=== PATIENT | female | born 1960 | race Caucasian/White ===

== ENCOUNTER 2020-05-24 07:36 | Outpatient (REF) | payer OTHER, SELFPAY ==
[2020-05-24 08:27] LABS: COVID-19 Test Negative (Negative)
== END 2020-05-24 07:37 | disposition home or self-care (01) ==
LOC: HO.LAB 07:36
PROVIDERS: Visit Provider Internal Medicine
DX: Z20.828 Contact with and (suspected) exposure to other viral communicable diseases (principal)
CPT/HCPCS: 87635

== ENCOUNTER 2020-05-28 08:37 | Outpatient (REF) | payer OTHER, SELFPAY ==
[2020-05-28 09:25] LABS: COVID-19 Test Negative (Negative)
== END 2020-05-28 08:38 | disposition home or self-care (01) ==
LOC: HO.LAB 08:37
PROVIDERS: Visit Provider Internal Medicine
DX: Z20.828 Contact with and (suspected) exposure to other viral communicable diseases (principal)
CPT/HCPCS: 87635

== ENCOUNTER 2020-06-11 08:44 | Outpatient (REF) | payer OTHER, SELFPAY ==
[2020-06-11 08:59] LABS: COVID-19 Test Positive (Negative)
== END 2020-06-11 08:45 | disposition home or self-care (01) ==
LOC: HO.LAB 08:44
PROVIDERS: Visit Provider Internal Medicine
DX: Z20.828 Contact with and (suspected) exposure to other viral communicable diseases (principal)
CPT/HCPCS: 87635; C9803

== ENCOUNTER 2020-09-25 08:49 | Emergency (ER) | payer OTHER, SELFPAY ==
[2020-09-25 08:53] VITALS: BP 179/99; PULSE 84; RESP 16; O2SAT 98; BMI 25.8
--- NOTE | 2020-09-25 08:56 | ED.HEATRA ---
HPI - Head Injury General Chief complaint: Wound/Laceration Stated complaint: head wound - work related Time Seen by Provider: 09/25/20 08:55 Source: patient Mode of arrival: other (was at work) Limitations: no limitations History of Present Illness HPI Narrative: 59 yo female struck head on counter at work - no LOC, no AC therapy Complaint: head injury Onset (ago): minute(s) (just prior to arrival occurred her in ED) Mechanism of Injury: work related injury (struck head on counter) Place: work Loss of Consciousness: no Location of injury: parietal Severity: mild Radiation: none Other Injuries: none Associated symptoms: denies other symptoms Related Data Allergies Allergy/AdvReac Type Severity Reaction Status Date / Time oxycodone Allergy Unknown itching Verified 04/08/17 00:00 No Known Allergies Allergy Unverified 04/19/20 16:58 Review of Systems Review of Systems: Constitutional : No Fever, No Chills, Cardiovascular : No Chest Pain, No SOB Respiratory : No Dyspnea Gastrointestinal : No abdominal pain Musculoskeletal : No Joint Swelling Skin : No rash, positive skin laceration Neuro : No Weakness, No Numbness no headache PMFSH Past Medical History Attestation statement: The following information was validated with the patient. Medical History History of breast cancer Surgical History H/O: hysterectomy Social History Social History (Updated 09/25/20 @ 08:59 by Radha Thomas DO) Smoking Status: Never smoker Physical Exam Vital Signs: Appearance: Alert. Oriented X3. No acute distress. Eyes: Pupils equal, round and reactive to light. ENT: Pharynx normal. Scalp linear superficial 1.5cm laceration bleeding controlled Neck: Normal inspection. Neck supple. CVS: Normal heart rate and rhythm. Pulses normal. Respiratory: No respiratory distress.. Abdomen: Soft and no trauma Skin: Skin warm and dry. Normal skin color. Normal skin turgor. Extremities: no trauma Neuro: Oriented X 3. No motor deficit. No sensory deficit. Procedures Laceration Laceration 1: Site: scalp Size (cm): 1.5 Description: linear Depth: simple, single layer Pre-repair: irrigated extensively Skin layer closed with: other (1 staple) MDM - Head Injury MDM Narrative Medical decision making narrative: 59 yo female struck head on cabinet - no LOC, no AC therapy small 1.5cm laceration will clean and staple, GCS 15 no need for ICH Discharge Plan Discharge Clinical Impression: Laceration of head Qualifiers: Encounter type: initial encounter Location of open wound of head: scalp Foreign body presence: without foreign body Qualified Code(s): S01.01XA - Laceration without foreign body of scalp, initial encounter Patient Disposition: Home, Self-Care Instructions: Head Laceration (ED) Additional Instructions: return to ED for any worsening symptoms or concerns neal to come out in 7 days
== END 2020-09-25 09:15 | disposition home or self-care (01) ==
PROVIDERS: Emergency Provider Emergency Medicine; PCP Nurse Practitioner Family
DX: S01.01XA Laceration without foreign body of scalp, initial encounter (principal); W22.09XA Striking against other stationary object, initial encounter; Y93.9 Activity, unspecified; Y92.9 Unspecified place or not applicable; Y99.0 Civilian activity done for income or pay
CPT/HCPCS: 12001; 99283; 99284

== ENCOUNTER 2020-11-08 08:46 | Outpatient (REF) | payer OTHER, SELFPAY ==
--- NOTE | ~2020-11-08 | XR_ITS ---
EXAMINATION: XR FOOT, LEFT CLINICAL INFORMATION: Fall with pain COMPARISON: None TECHNIQUE: 3 views of the left foot FINDINGS: There is soft tissue swelling seen about the third distal phalanx. There is osteopenia present and though no acute fracture is identified a nondisplaced tuft fracture cannot be excluded. No dislocation evident. Joint spaces are maintained. Achilles and plantar calcaneus spurs present. No erosive changes identified. XR/XR foot LT min 3V IMPRESSION: Calcaneal spurs. No definite acute fracture or dislocation of the left foot identified. Due to osteopenia a nondisplaced distal tuft fracture of the third toe is not excluded.
== END 2020-11-08 08:47 | disposition home or self-care (01) ==
LOC: HO.XRAY 08:46
PROVIDERS: PCP Nurse Practitioner Family; Visit Provider Physician Assistant Medical
DX: M79.672 Pain in left foot (principal); M79.89 Other specified soft tissue disorders
CPT/HCPCS: 73630

== ENCOUNTER 2021-03-12 06:46 | Outpatient (REF) | payer OTHER, SELFPAY ==
[2021-03-12 07:39] LABS: Influenza A PCR NEGATIVE (Negative); Influenza B PCR NEGATIVE (Negative); Resp Syncy Virus RNA Qual PCR NEGATIVE (Negative); SARS COV2 PCR INHOUSE NEGATIVE (Negative)
== END 2021-03-12 06:47 | disposition home or self-care (01) ==
LOC: HO.LAB 06:46
PROVIDERS: Visit Provider Internal Medicine
DX: Z20.822 Contact with and (suspected) exposure to COVID-19 (principal)
CPT/HCPCS: 0241U; 36415

== ENCOUNTER 2021-03-23 13:12 | Outpatient (REF) | payer OTHER, SELFPAY ==
[2021-03-23 15:13] LABS: Influenza A PCR NEGATIVE (Negative); Influenza B PCR NEGATIVE (Negative); Resp Syncy Virus RNA Qual PCR NEGATIVE (Negative); SARS COV2 PCR INHOUSE NEGATIVE (Negative)
== END 2021-03-23 13:13 | disposition home or self-care (01) ==
LOC: HO.ED 13:12
PROVIDERS: PCP Nurse Practitioner Family; Visit Provider Internal Medicine
DX: Z20.822 Contact with and (suspected) exposure to COVID-19 (principal)
CPT/HCPCS: 0241U; 36415

== ENCOUNTER 2021-07-26 06:29 | Outpatient (REF) | payer OTHER, SELFPAY ==
[2021-07-26 07:37] LABS: COVID-19 Test Negative (Negative)
== END 2021-07-26 06:30 | disposition home or self-care (01) ==
LOC: HO.LAB 06:29
PROVIDERS: Visit Provider Internal Medicine
DX: Z20.822 Contact with and (suspected) exposure to COVID-19 (principal)
CPT/HCPCS: 36415; 87635

== ENCOUNTER 2021-08-05 05:32 | Outpatient (REF) | payer OTHER, SELFPAY ==
[2021-08-05 05:53] LABS: IDNOW Serial# 9DD0AD1C
[2021-08-05 05:54] LABS: COVID-19 Test Positive (Negative)
== END 2021-08-05 05:33 | disposition home or self-care (01) ==
LOC: HO.LAB 05:32
PROVIDERS: PCP Nurse Practitioner Family; Visit Provider Internal Medicine
DX: Z20.822 Contact with and (suspected) exposure to COVID-19 (principal)
CPT/HCPCS: 36415; 87635

== ENCOUNTER 2022-04-10 08:03 | Outpatient (REF) | payer OTHER, SELFPAY ==
[2022-04-10 08:45] LABS: COVID-19 Test Negative (Negative); IDNOW Serial# 16C4AD1C
== END 2022-04-10 08:04 | disposition home or self-care (01) ==
LOC: HO.LAB 08:03
PROVIDERS: Absent Provider Internal Medicine; PCP Nurse Practitioner Family; Visit Provider Internal Medicine
DX: Z20.822 Contact with and (suspected) exposure to COVID-19 (principal)
CPT/HCPCS: 87635

== ENCOUNTER 2025-04-03 22:03 | Inpatient (IN) | payer BC, SELFPAY ==
--- OUTSIDE RECORDS SUMMARY | 2011-02-06 | XMS_ITS | Encounter Summary ---
Author Organization Blas Yang [facility] Address [address] [place] [address] Phone Care Team Providers Care Field Traffic Investigator Name Role Phone Unavailable Primary Care Provider Unavailabl e Encounter Details Date Type Department Care Team (Late st Contact Info) Description 02/06/2011 Hospital Encounter [facility],Outside Imaging [address] [place], [place] [id number] Unknown, Unknown, Social History Tobacco Use Types Packs/Day Years Used Date Smoking Tobacco: Never Smokeless Tobacco: Never Alcohol Use Standard Drinks/Week Comments Yes 0 (1 standard drink = 0.6 oz pur e alcohol) occasional 2 per month Child or Family Care Answer Date Record ed Do you have problems with on e of the following making it difficult for you to work, study, or receive health care? No 03/31/2023 Education Answer Date Recorded Are you interested in help w ith more adult education (for example, completing high school, GED, job training, learning the Cook Islander language, technical skills, or developing parenting skills)? No 03/31/2023 Are you concerned about learning? Not on file 03/31/2023 No 03/31/2023 Yes 03/31/2023 Food Answer Date Recorded Within the past 6 months we worried whether our food would run out before we got money to buy more. Never True 03/31/2023 Within the past 6 months the food we bought just didn't last and we didn't have enough money to get more. Never True Residential Stability Answer Date Recor ded What is your housing situation today? I have prashant sing 03/31/2023 How many times have you move d in the past 12 months? Zero (I did not move) 03/31/2023 Paying for Meds Answer Date Recorded Do you have trouble paying for medicines? No 03/31/2023 Paying Utility Bills Answer Date Record ed Do you have trouble paying your heating or elect ricity bill? No 03/31/2023 Transportation Answer Date Recorded Has the lack of transportati on kept you from medical appointments or from getting medications? No 03/31/2023 Unemployment Answer Date Recorded Are you currently unemployed or working on a part-time or temporary basis, and looking for work? No 02/22/2021 Digital Access Answer Date Recorded No 03/31/2023 Yes 03/31/2023 Do you have reliable internet access at home? Ye s 03/31/2023 Do you have a device (e.g., phone, tablet, computer) with a working camera? Yes 03/31/2023 Intimate Partner Violence Answer Date R ecorded Denied Basic Needs Not on file 03/31/2023 In the past 12 months have y ou been in a relationship with a person who hurts, threatens, or tries to control you? No 03/31/2023 Worried food would run out Not on file 03/31 In the past 12 months have y ou been in a relationship with a person who hurts, threatens, or tries to control you? No 03/31/2023 Comments No Sex and Gender Information Value Date Recorded Sex Assigned at Not on file Legal Sex Female 9:50 PM EDT Gender Identity Not on file Sexual Orientation Not on file documented as of this encounter Functional Status documented as of this encounter Plan of Treatment Not on file documented as of this encounter Procedures Procedure Name Priority Date/Time Associated Diagnosis Comments BI MAMMOGRAM OUTSIDE (NO INTERPRETATION) Routine 02/06/2011 12:00 AM EDT documented in this encounter Results * Mammogram Outside (No Interpretation) (02/06/2011 12:00 AM EDT) Narrative Record, 09/13/2024 3:02 PM EST This study is for PACS storage only and not for interpretation. Procedure Note Record, 09/13/2024 This study is for PACS storage only and not for interpretation. us Unknown Unknown MD IMG OUTSIDE IMAGING W/OUT INT ERPRETATION Final Result documented in this encounter Visit Diagnoses Not on filedocumented in this encounter Additional Source Comments The information contained in this document represents components of the legal health record. It is not the complete legal health record.[facility]
--- OUTSIDE RECORDS SUMMARY | 2011-07-22 01:00 | XMS_ITS | Encounter Summary ---
Author Organization Blas Yang [facility] Address [address] [place] [address] Phone Care Team Providers Care Simplex Operator Name Role Phone Unavailable Primary Care Provider Unavailabl e Encounter Details Date Type Department Care Team (Late st Contact Info) Description 07/22/2011 Hospital Encounter [facility],Outside Imaging [address] [place], [place] [phone] Unknown, Unknown, Social History Tobacco Use Types [...] high school, GED, job training, learning the Macanese language, technical skills, or developing parenting skills)? [...] It is not the complete legal health record.[facility]
--- NOTE | ~2025-04-03 | CT_ITS ---
CLINICAL HISTORY: abd pain, fever CT abdomen and pelvis with contrast Comparison: None provided Findings: Mild asymmetry of the imaged implants nonspecific as partially imaged in the [id number]. Age indeterminate ruptures considered on the right. Mild bibasilar atelectasis and/or pneumonitis with superimposed scarring. Multiple cystic lesions of the liver are nonspecific by CT with left lobe-nonenlarged lesion measuring 2.7 cm selectively. Mild periportal edema is nonspecific. Cholelithiasis considered in the neck of the gallbladder by CT. Mild adrenal hyperplasia, left worse than right. Spleen is nonenlarged. Pancreas partly obscured and otherwise unremarkable for CT with mild artifacts. No hydronephrosis. Small cystic structures of the kidneys are too small to characterize by imaging. No small bowel obstruction. Severe stool burden noted, including in the cecum. The appendix is dilated measuring 9 mm diameter. Wall enhancement and adjacent acute inflammatory stranding are concerning for appendicitis. Additional mild free fluid in the abdomen and pelvis nonspecific and may be reactive. No free intraperitoneal air to support or defined perforation. No definite drainable abscess by CT. Mild-moderate wall thickening of the urinary bladder is nonspecific and may reflect cystitis. Mild osseous pelvis deformities appear old/chronic. Mild osteoarthritis of both hips. Degenerative changes also include imaged spine with multifocal degenerative disc changes and multifocal facet arthropathy. Mild height loss of the L2 appears old/chronic and accentuated by upper endplate Schmorl's nodes. Mild retrolisthesis at L2-L3. IMPRESSION: 1. Appendicitis 2. Nonspecific liver lesions. Differential considerations include cysts and hemangiomas in the absence of malignancy. Recommend outpatient liver mass imaging for additional characterization, if not already achieved. This document has been electronically signed by: Cole Manning MD on 04/04/2025 01:01:39
[2025-04-03 22:09] VITALS: BP 196/96; PULSE 100; PULSE 98; RESP 18; TEMP 37.4; O2SAT 95; O2SAT 96; BMI 25.5
[2025-04-03 22:13] VITALS: BP 164/98; PULSE 98; RESP 18; TEMP 37.4; O2SAT 95
[2025-04-03 22:30] VITALS: PULSE 109; TEMP 38.3
[2025-04-03 22:31] LABS: MANUAL DIFF FLAG NO
[2025-04-03 22:34] LABS: Hematocrit 35.2 % (37.0-47.0); Hemoglobin 12.7 g/dl (12.0-16.0); Imm Gran Abs Auto 0.04 X10*3/uL (0.00-0.03); Imm Gran Pct Auto 0.3 % (0.0-0.4); Lymphocytes Absolute Auto 1.7 X10*3/uL (1.2-4.9); Mean Corpuscular HGB Conc 36.1 g/dl (31.0-35.0); Mean Corpuscular Hemoglobin 30.1 pg (27.0-33.0); Mean Corpuscular Volume 83.4 fL (80.0-98.0); NRBC Abs Auto 0.000 X10*3/uL (0.0-0.012); NRBC Pct Auto 0.0 /100WBC (0.0-0.2); Platelet Count 227 X10*3/uL (160-400); Red Blood Count 4.22 X10*6/uL (4.20-5.50); White Blood Count 11.9 X10*3/uL (4.8-10.8)
--- OUTSIDE RECORDS SUMMARY | 2025-04-03 22:45 | XMS_ITS | Encounter Summary ---
Author Organization [facility] Address [address] [place] [address] Phone Care Team Providers Care Behavioral Health Rn Name Role Phone Mak Pham MD Unavailable [phone] Galicia Primary Care Provider [phone] Encounter Details Date Type Department Care Team (Late st Contact Info) Description 11/15/2024 Transcribe Orders Virtual Department [address] [place] [address] Bre Galicia PA [address] [place] [address] [phone] [email or web address] Social History Tobacco Use Types Packs/Day Years [...] high school, GED, job training, learning the Portuguese language, technical skills, or developing parenting skills)? [...] your housing situation today? I have prashant mayers 03/31/2023 How many times have you move [...] on file documented as of this encounter Plan of Treatment Not on file documented as of this encounter Visit Diagnoses Not on filedocumented in this encounter Additional Health Concerns Assessment Noted Time PHQ-2 Depression Total Score: 0 03/31/20 23 12:53 PM EDT documented as of this encounter Care Teams Behavioral Health Rn Relationship Specialty Start Date End Date Bre Galicia PA [address] [place] [address] [email or web address] PCP - General Physician Convolute Tube Winder 2/11/25 Mak Pham MD [address] [place], [place] [id number] [email or web address] Insurance Assigned Provider 02/06/24 documented as of this encounter Additional Source Comments The information contained in this document represents components of the legal health record. It is not the complete legal health record.[facility]
--- OUTSIDE RECORDS SUMMARY | 2025-04-03 22:46 | XMS_ITS | Patient Health Record ---
Author [facility] Address [address] [place] [address] Care Team Providers Care Program Services Assistant Name Role Phone Shelby Ervin NP Primary Care Provider Nicolas Claudio Unavailable [phone] Allergies Allergen (clinical drug ingredient) Drug/Non Drug Allergy documented on EMR Reaction Allergy Type Onset Date Status acetaminophen / oxycodone Percocet Itchy Drug Allergy Active Reason For Referral No Information Medications Medication SIG (Take, Route, Fr equency, Duration) Notes Start Date End Date Status Feldene 20 MG 1 capsule with food Orally Once a day; Duration: 14 days 07/12/2021 Ac tive Eye Vitamins - as directed Orally Active Multivitamin Active Vitamin D Active Walking Boot/Pneumatic As directed Wear Daily; Duration: Until further notice Active Immunizations Vaccine Route Administration Date Status Comme nts COVID-19 Moderna Vaccine Unknown 08/06/2020 Administere d COVID-19 Moderna Vaccine Unknown 09/03/2020 Administere d 1# 08/06/2020 Social History Tobacco Use: Social History Observation Description Date Details (start date - stop date) Never Smoker NA - NA Tobacco Use/Smoking Question Answer Notes Are you a: nonsmoker Additional Findings: Tobacco Non-User Current no n-smoker Alcohol Screen Question Answer Notes Did you have a drink contain ing alcohol in the past year? Yes How often did you have a dri nk containing alcohol in the past year? Monthly or less (1 point) Points 1 Interpretation Negative Tobacco use other than smoking: Question Answer Notes Are you an other tobacco user? No Problems Problem Type SNOMED Code ICD Code Onset Dates Problem Status W/U Status Risk Notes Problem Contracture of joint of left foot (disorder) (907680311325744) Contracture , left foot (M24.575) Active confirmed Problem Acquired hammer toe of left foot (2202800164188923 ) Hammer toe of left foot (M20.42) Active confirmed Plan Of Treatment Pending Test Test Name Order Date X ray : Foot, left 3V 11/30/2020 X ray : Foot, left 3V 12/26/2020 Insurance Providers Payer Name Payer Address Payer Phone Subscriber Number Group Number Insured Name Patient Relationship to Insured Coverage Start Date Coverage End Date Blue Benefits [address] [address] [place] [address] [id number] Maribel Underwood Self - patient is the insured Medical (General) History Medical History History ICD Code Breast Cancer Chicken pox Transfusions Surgical History Surgery Date(Month/Year) Breast Lumpectomy 07/1998 breast reconstruction 08/2008 hysterectomy 11/2008
--- OUTSIDE RECORDS SUMMARY | 2025-04-03 22:46 | XMS_ITS | Clinical Summary ---
Author Organization [facility] Address [address] [place] [address] Phone Care Team Providers Care Egg Tester Name Role Phone Mak Pham MD Unavailable [phone] Bre Galicia Primary Care Provider [phone] Allergies No known active allergies Medications acetaminophen (TYLENOL) 325 mg tablet Take 1 tablet by mouth every 6 (six) hours as needed. Active cholecalciferol (VITAMIN D3) 2,000 unit tablet Take 2,000 Units by mouth daily. Active vitamin A,C,E-zinc-salinas er (OCUVITE PRESERVE) 7,160 unit- 113 mg-100 unit Tab Take 1 tablet by mouth daily. Active ascorbic acid, vitamin C, (VITAMIN C) 500 MG tablet Take 500 mg by mouth daily. Active microfibrillar collagen (INSTAT) powder Apply topically as needed. 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 Immunizations Immunization Administration Dates Next Due COVID-19 (Pre-05/25) Moderna Vaccine, mRNA, PF 09/03/2020,08/06/2020 Influenza Quadrivalent Preservative Free IM 05/03,08/25/2019,05/19/2018 Influenza Recombinant Tyrone valent Preservative Free IM 05/07/2020 Tdap 05/04/2014 Family History Medical History Relation Comments No Known Problems Daughter Cancer Father Lung cancer Father No Known Problems Sister 1 No Known Problems Sister 2 No Known Problems Son 1 No Known Problems Son 2 Relation Status Comments Daughter Alive Father Mother Alive Sister 1 Alive Sister 2 Alive Son 1 Alive Son 2 Alive Social History Tobacco Use Types Packs/Day Years Used Date Smoking Tobacco: Never Smokeless Tobacco: Never Tobacco Cessation:Counseling Given: Not Answered Alcohol Use Standard Drinks/Week Comments Yes 0 [...] high school, GED, job training, learning the Belizean language, technical skills, or developing parenting skills)? [...] on file Sexual Orientation Not on file Last Filed Vital Signs Vital Sign Reading Time Taken Comments Blood Pressure 132/84 03/31/2023 1:26 PM EDT Pulse 94 03/31/2023 1:26 PM EDT Temperature 37.1 C (98.7 F) 03/31/2023 1:26 PM EDT Respiratory Rate 16 08/25/2019 1:23 PM EST Oxygen Saturation 97% 03/31/2023 1:26 PM EDT Inhaled Oxygen Concentration - - Weight 66.2 kg (146 lb) 03/31/2023 1:26 PM EDT Height 156 cm (5' 1.42 ) 03/31/2023 1:26 PM EDT Body Mass Index 27.21 03/31/2023 1:26 PM EDT Plan of Treatment Health Maintenance Due Date Last Done Comments COLOGUARD 12/07/2003 COLONOSCOPY 12/07/2003 COLORECTAL CANCER SCREENING 12/07/2003 FIT TEST 12/07/2003 FOBT 12/07/2003 SIGMOIDOSCOPY 12/07/2003 VIRTUAL COLONOSCOPY 12/07/2003 PNEUMOCOCCAL VACCINES (50+ years) (1 of 1 - PCV) 2008 ZOSTER VACCINES (1 of 2) 2008 OSTEOPOROSIS SCREENING INITIAL (ONE-TIME) 12/07/2023 DEPRESSION SCREENING 03/31/2024 03/31/2023 Adult Td,Tdap Booster 05/04/2024 05/04/2014 INFLUENZA VACCINE (#1) 2025 , 05/07/2020, 08/25/2019, Additional history exists COVID-19 VACCINE ( - 2024- season) 2025 08/30/2021, 09/03/2020, 08/06/2020 SCREENING FOR DIABETES 03/31/2026 03/31/2023 MAMMOGRAM 09/13/2026 09/13/2024, 11/01, 11/16/2017, Additional history exists LIPID PANEL 03/31/2028 03/31/2023, 08/03, 08/15/2017, Additional history exists RSV VACCINE (1 - 1-dose 75+ series) 2033 HEPATITIS C SCREENING Completed 08/25/2019 SMOKING STATUS SCREENING (Once After 26 Yrs) Completed 09/13/2024 HEPATITIS A VACCINES Aged Out No long er eligible based on patient's age to complete this topic HIB VACCINES Aged Out No longer eligi ble based on patient's age to complete this topic MENINGOCOCCAL VACCINES (ACWY) Aged Out No longer eligible based on patient's age to complete this topic MENINGOCOCCAL VACCINES (B) Aged Out N o longer eligible based on patient's age to complete this topic Medical Devices Not on file Procedures Procedure Name Priority Date/Time Associated Diagnosis Comments BI MAMMOGRAM SCREENING WITH TOMOSYNTHESIS WITH CAD (BILATERAL) Routine 09/13/2024 11:52 AM EST Encounter for screening mammogram for malignant neoplasm of breast LIPID PANEL Routine 03/31/2023 2:19 PM EDT Routine general medical examination at a health care facility HEPATITIS C ANTIBODY, QUALITATIVE Routine 08/25/2019 2:54 PM EST Routine general medical examination at a health care facility from Last 3 Months or Most Recently Relevant to Health Maintenance Results * BI MAMMOGRAM SCREENING WITH TOMOSYNTHESIS WITH CAD (BILATERAL) (09/13/2024 11:52 AM EST) Anatomical Region Laterality Modality Breast Left, Breast Right, Breast Bilateral Bila teral Mammography 09/14/2024 6:45 AM EST Impressions 09/14/2024 6:48 AM EST No mammographic evidence of malignancy in either breast. Annual screening mammography is recommended. BI-RADS 2 BENIGN The patient will be notified of the results and recommendations. Narrative 09/14/2024 6:48 AM EST BI MAMMOGRAM SCREENING WITH TOMOSYNTHESIS WITH CAD (BILATERAL) Additional patient information: Screening. History of left breast cancer status post breast conserving therapy (1998). COMPARISON: Comparison is made with relevant prior imaging. Breast composition: There are scattered areas of fibroglandular density. FINDINGS: Post-treatment changes are present in the left breast. There is a biopsy marker clip in the right breast at 6:00 position. There are intact appearing bilateral retropectoral silicone implants present. No abnormal masses, suspicious calcifications, or other significant findings are identified mammographically in either breast. There has been no significant interval change. Procedure Note Angelica Dejesus MD - 09/14/2024 BI MAMMOGRAM SCREENING WITH TOMOSYNTHESIS WITH CAD (BILATERAL) Additional patient information: Screening. History of left breast cancerstatus post breast conserving therapy (1998). COMPARISON: Comparison is made with relevant prior imaging. Breast composition: There are scattered areas of fibroglandular density. FINDINGS: Post-treatment changes are present in the left breast. There is a biopsymarker clip in the right breast at 6:00 position. There are intactappearing bilateral retropectoral silicone implants present. No abnormal masses, suspicious calcifications, or other significantfindings are identified mammographically in either breast. There has been no significant interval change. IMPRESSION: No mammographic evidence of malignancy in either breast. Annual screening mammography is recommended. BI-RADS 2 BENIGN The patient will be notified of the results and recommendations. us Shelby Ervin NP IMG MG EXAMS Final Result * (ABNORMAL) Lipid panel (03/31/2023 2:19 PM EDT) HDL 103 mg/dL [facility] Comment: Interpretation <40 mg/dL: Low HDL cholesterol (major risk factor for CHD) Greater than or equal to 60 mg/dL: High HDL cholesterol ( negative risk factor for CHD) HDL - cholesterol is affected by a number of factors, e.g. smoking, excerise, hormones, sex and age. CHOLESTEROL 227 0 - 240 mg/dL [facility] TRIGLYCERIDES 81 30 - 160 mg/dL [facility] LDL 108 50 - 129 mg/dL [facility] Comment: LDL levels in terms of risk for coronary heart disease: <100 mg/dL: Optimal 100-129 mg/dL: Near or above optimal 130-159 mg/dL: Borderline high 160-189 mg/dL: High >190 mg/dL: Very High CARDIAC RISK RATIO 2.2(L) 3.3 - 4.4 C [facility] Blood 03/31/2023 2:19 PM EDT 03/31/2023 2:22 PM EDT Shelby Ervin NP LAB BLOOD ORDERABLES Final Resu lt Performing Organization Address [facility]/ZIP Co de Phone Number [address] [address] * Hepatitis C antibody, qualitative (08/25/2019 2:54 PM EST) HCV NON-REACTIV E NON-REACTI VE [facility] Blood 08/25/2019 2:54 PM EST 08/25/2019 2:58 PM EST Shelby Ervin NP LAB BLOOD ORDERABLES Final Resu lt Performing Organization Address [facility]/ZIP Co de Phone Number [address] [address] from Last 3 Months or Most Recently Relevant to Health Maintenance Insurance [facility] [place] [address] [place] [address] [place] [address] [place] [address] [place] [address] [place] [address] Care Teams Egg Tester Relationship Specialty Start Date End Date Bre Galicia PA [address] [place] [id number] [email or web address] PCP - General Physician Transfer Worker 09/13/24 Mak Pham MD [address] [place] [id number] [email or web address] Insurance Assigned Provider 02/06/24 Additional Source Comments The information contained in this document represents components of the legal health record. It is not the complete legal health record.[facility]
--- OUTSIDE RECORDS SUMMARY | 2025-04-03 22:46 | XMS_ITS | Encounter Summary ---
Author Organization [facility] Address [address] [place] [address] Phone Care Team Providers Care Automation Software Engineer Name Role Phone Shelby Ervin NP Primary Care Provider [phone] Unknown, Unknown Primary Care Provider Mak Tirado MD Unavailable [phone] Galicia Primary Care Provider [phone] Encounter Details Date Type Department Care Team (Late st Contact Info) Description 03/31/2023 Procedure Pass [facility], [facility] [address] [place] [address] Social History Tobacco Use Types Packs/Day Years [...] high school, GED, job training, learning the [place] language, technical skills, or developing parenting skills)? [...] documented as of this encounter Care Teams Automation Software Engineer Relationship Specialty Start Date End Date Shelby Ervin NP PCP - General Family Medicine 01/21/21 10/04/23 Unknown, Unknown, PCP - General 10/05/23 09/12/24 Bre Galicia PA [address] [place] [id number] [email or web address] PCP - General Physician Ink Grinder 09/13/24 Mak Pham MD [address] [place] [id number] [email or web address] Insurance Assigned Provider 02/06/24 documented as of this encounter Additional Source Comments The information contained in this document represents components of the legal health record. It is not the complete legal health record.[facility]
[2025-04-03] MEDS: Lactated Ringers 1,000 ML 999 ML IV (22:57)
[2025-04-03 23:21] LABS: Anion Gap 11 (12-20); Blood Urea Nitrogen 15 mg/dL (9-16); Calcium 9.8 mg/dL (8.4-10.2); Carbon Dioxide 23 mmol/L (22-29); Chloride 108 mmol/L (96-108); Creatinine Clr Calc Pharmacy 55.3; Estimated Glomerular Filt Rate > 60; Lipase 25 U/L (8-78); Potassium 3.9 mmol/L (3.3-5.1); Sodium 138 mmol/L (135-145)
[2025-04-03] MEDS: iohexoL 350 MG/ML 100 ML INFUS..BTL 85 ML IV (23:47)
[2025-04-03 23:53] VITALS: BP 150/85; PULSE 90; RESP 18; TEMP 36.9; O2SAT 95
[2025-04-04] VITALS (19 sets, daily range): BP systolic 137–167; BP diastolic 69–100; PULSE 68–90; RESP 15–21; TEMP 36.3–37.6; O2SAT 90–100; BMI 26.8
--- NOTE | 2025-04-04 00:09 | ED_ITS ---
HPI - Abdominal Pain General Chief Complaint: Abdominal Pain Stated Complaint: Abd pain Time Seen by Provider: 04/03/25 22:50 Source: patient, family and EMS Mode of arrival: EMS Limitations: no limitations History of Present Illness ED Provider: Dr. Carla Hoang HPI narrative: 64-year-old female previously healthy presenting with right lower quadrant abdominal pain that began earlier today. Admits that last night she had developed some generalized abdominal pain that has localized to the right lower quadrant. Pain has been constant since it started pain is worse with movement. No relief with Tylenol. Some associated nausea but no vomiting. Does admit to a poor appetite. No bowel changes though she has not had a bowel movement today due to decreased oral intake. Denies urinary complaints. Only abdominal surgery is a hysterectomy. Related Data Allergies Allergy/AdvReac Type Severity Reaction Status Date / Time oxycodone Allergy Unknown itching Verified 04/03/25 22:11 Review of Systems Review of Systems As per HPI, full review of systems performed and negative but for the above mentioned pertinent positives and negatives. [facility] Past Medical History Medical History History of breast cancer Surgical History H/O: hysterectomy Social History Social History Smoked in Last 30 Days: No Use of substances other than those prescribed or required for medical reasons: No Advance Directives: No Advance Directives Information Provided: No Physical Exam ED Exam Exam: GENERAL: Ill-Appearing, appears uncomfortable. SKIN: Normal skin color for ethnicity, warm, dry, no rashes noted. HEENT: Normocephalic, atraumatic, no stridor, dry mucous membranes, dentition intact, EOMI, PERRLA. NECK: Soft, supple, full ROM, midline structures nontender, no step-offs, no deformities, no lymphadenopathy. CHEST: Heart regular tachycardia, no murmurs, symmetric chest rise and fall. PULMONARY: Clear to auscultation bilaterally, diminished at the bases, no labored breathing, no wheezes/rhales/rhonchi. ABDOMINAL: Soft, nondistended, right lower quadrant tenderness to palpation with voluntary guarding, positive bowel sounds in all quadrants. : Deferred. MUSCULOSKELETAL: Normal tone, full range of motion, no deformities, no peripheral edema. NEURO: Alert and oriented x3, CN II through XII intact, equal strength and sensation bilateral upper and lower extremities, no focal neurologic deficits. PSYCHIATRIC: Flat affect, fluid speech, good eye contact and appropriate demeanor. Vital Signs: Vital Signs - 24 hr 04/03/25 22:09 04/03/25 22:13 04/03/25 22:30 Temperature 99.4 F 99.4 F 101.0 F H Pulse Rate 98 98 109 H Respiratory Rate 18 18 Blood Pressure 164/98 H Pulse Oximetry 95 95 Oxygen Delivery Method Room Air Room Air 04/03/25 23:53 04/04/25 00:28 04/04/25 01:01 Temperature 98.5 F Pulse Rate 90 85 85 Respiratory Rate 18 16 21 H Blood Pressure 150/85 H 156/84 H 145/79 H Pulse Oximetry 95 95 94 Oxygen Delivery Method Room Air Room Air Room Air BMI result Body Mass Index 25.5 Medical Decision Making Medical Decision Making [facility] Narrative: This patient presents today with a chief complaint of abdominal pain. Differential diagnosis for this patient is broad. It includes appendicitis, cholecystitis, bowel obstruction, peptic ulcer disease, pyelonephritis, vascular pathology, among many others. A broad-based workup based on history and physical examination was obtained. Patient initially flagging for sepsis with fever, heart rate elevated, likely abdominal source. Medicated with fluids, Zosyn, IV Tylenol. CT does indeed show evidence of acute appendicitis. Case discussed with general surgeon on-call who will admit her for appendectomy. Patient understands and agrees with plan for admission. Remains pain-free after IV Tylenol. Admitted in guarded condition. Differential Diagnosis Differential Diagnoses: The differential diagnosis associated with the presentation includes (As above) Admission/Observation Consideration of admission/observation: Escalation of care including admission/observation considered Consult Healthcare Provider Management of the patient was discussed with: Drone Operator (General surgery, Dr. Murguia) Lab Data [facility] Lab Attestation statement: I reviewed the patient's lab results. 04/03/25 22:27 04/03/25 22:57 Labs: Lab Results 04/03/25 04/03/25 04/03/25 Range/Units 22:27 22:55 22:57 WBC 11.9 H (4.8-10.8) X10*3/uL RBC 4.22 (4.20-5.50) X10*6/uL Hgb 12.7 (12.0-16.0) g/dl Hct 35.2 L (37.0-47.0) % MCV 83.4 (80.0-98.0) fL MCH 30.1 (27.0-33.0) pg MCHC 36.1 H (31.0-35.0) g/dl RDW 13.0 (11.0-16.0) % Plt Count 227 (160-400) X10*3/uL MPV 8.8 L (9.4-12.3) fL Immature Gran % (Auto) 0.3 (0.0-0.4) % Neut % (Auto) 79.6 H (45-73) % Lymph % (Auto) 14.0 L (20-40) % [place] % (Auto) 4.6 (2-11) % Eos % (Auto) 1.2 (0-4) % Baso % (Auto) 0.3 (0-2) % Lymph # (Auto) 1.7 (1.2-4.9) X10*3/uL [place] # (Auto) 0.6 (0.1-1.2) X10*3/uL Eos # (Auto) 0.1 (0.0-0.4) X10*3/uL Baso # (Auto) 0.0 (0.0-0.2) X10*3/uL Abs Immat Gran (auto) 0.04 H (0.00-0.03) X10*3/uL Absolute Neuts (auto) 9.5 H (2.0-8.3) x10*3/uL Absolute Nucleated RBC 0.000 (0.0-0.012) X10*3/uL Nucleated RBC % (auto) 0.0 (0.0-0.2) /100WBC Hold Purple Top SEE NOTE Sodium 138 (135-145) mmol/L Potassium 3.9 (3.3-5.1) mmol/L Chloride 108 (96-108) mmol/L Carbon Dioxide 23 (22-29) mmol/L Anion Gap 11 L (12-20) BUN 15 (9-16) mg/dL Creatinine 0.91 (0.5-1.4) mg/dL Estim Creat Clear Calc 55.3 Estimated GFR > 60 Random Glucose 114 (60-115) mg/dL Lactic Acid 0.6 (0.5-2.0) mmol/L Calcium 9.8 (8.4-10.2) mg/dL Lipase 25 (8-78) U/L Hold Green Top See Note Urine Color Urine Appearance Urine pH (5.0-9.0) Ur Specific [place] (1.005-1.025) Urine Protein (Neg-Trace) mg/dL Urine Glucose (UA) (Negative) mg/dL Urine Ketones (Negative) mg/dL Urine Blood (Negative) Urine Nitrite (Negative) Ur Leukocyte Esterase (Negative) Urine RBC (0-2) /HPF Urine WBC (0-5) /HPF Ur Squamous Epith Cells (0-2) /HPF Urine Bacteria (None Seen) Hyaline Casts (0-2) /LPF 04/04/25 Range/Units 00:15 WBC (4.8-10.8) X10*3/uL RBC (4.20-5.50) X10*6/uL Hgb (12.0-16.0) g/dl Hct (37.0-47.0) % MCV (80.0-98.0) fL MCH (27.0-33.0) pg MCHC (31.0-35.0) g/dl RDW (11.0-16.0) % Plt Count (160-400) X10*3/uL MPV (9.4-12.3) fL Immature Gran % (Auto) (0.0-0.4) % Neut % (Auto) (45-73) % Lymph % (Auto) (20-40) % [place] % (Auto) (2-11) % Eos % (Auto) (0-4) % Baso % (Auto) (0-2) % Lymph # (Auto) (1.2-4.9) X10*3/uL [place] # (Auto) (0.1-1.2) X10*3/uL Eos # (Auto) (0.0-0.4) X10*3/uL Baso # (Auto) (0.0-0.2) X10*3/uL Abs Immat Gran (auto) (0.00-0.03) X10*3/uL Absolute Neuts (auto) (2.0-8.3) x10*3/uL Absolute Nucleated RBC (0.0-0.012) X10*3/uL Nucleated RBC % (auto) (0.0-0.2) /100WBC Hold Purple Top Sodium (135-145) mmol/L Potassium (3.3-5.1) mmol/L Chloride (96-108) mmol/L Carbon Dioxide (22-29) mmol/L Anion Gap (12-20) BUN (9-16) mg/dL Creatinine (0.5-1.4) mg/dL Estim Creat Clear Calc Estimated GFR Random Glucose (60-115) mg/dL Lactic Acid (0.5-2.0) mmol/L Calcium (8.4-10.2) mg/dL Lipase (8-78) U/L Hold Green Top Urine Color Yellow Urine Appearance Clear Urine pH 6.0 (5.0-9.0) Ur Specific [place] >= 1.030 H (1.005-1.025) Urine Protein Negative (Neg-Trace) mg/dL Urine Glucose (UA) Negative (Negative) mg/dL Urine Ketones Negative (Negative) mg/dL Urine Blood Negative (Negative) Urine Nitrite Negative (Negative) Ur Leukocyte Esterase Trace H (Negative) Urine RBC 0-2 (0-2) /HPF Urine WBC 0-5 (0-5) /HPF Ur Squamous Epith Cells 0-2 (0-2) /HPF Urine Bacteria None Seen (None Seen) Hyaline Casts 0-2 (0-2) /LPF Radiology Impression Discussion of test interpretation with radiology: I have reviewed the radiologist's reading. Independent Historian Clinical information obtained from an independent historian. History obtained from or confirmed by: Spouse and EMS Medications Administered Generic Name Dose Route Start Last Admin Trade Name Freq PRN Reason Stop Dose Admin Sodium Chloride 1,000 mls @ 100 mls/hr 04/04/25 01:15 04/04/25 02:12 Ns IVCONT 100 mls/hr .Q10H NICOLA Administration Discontinued Medications Generic Name Dose Route Start Last Admin Trade Name Freq PRN Reason Stop Dose Admin Lactated Ringer's 1,000 mls @ 999 mls/hr 04/03/25 22:50 04/04/25 00:27 Lr IV 04/03/25 23:50 Infused .Q1H1M ONE Infusion Piperacillin Sod/Tazobactam 100 mls @ 200 mls/hr 04/03/25 22:50 04/03/25 23:28 Sod 4.5 gm/ Sodium Chloride IV 04/03/25 23:19 Infused ONCE ONE Infusion Acetaminophen 1,000 mg in 100 mls @ 400 mls/hr 04/03/25 22:50 04/03/25 23:13 Ofirmev IV 04/03/25 23:04 Infused ONCE ONE Infusion Iohexol 85 ml 04/03/25 23:40 04/03/25 23:47 Iohexol 350 Mg/Ml 100 Ml Infus..Btl IV 04/03/25 23:41 85 ml ONCE ONE Administration Discharge Plan Discharge Clinical Impression: Acute appendicitis Patient Disposition: Admitted As Inpatient
[2025-04-04 00:23] LABS: Appearance Urine Clear; Glucose Urine UA Negative (Negative); PH 6.0 (5.0-9.0); Specific Gravity - Urine >= 1.030 (1.005-1.025); UMIC TRIGGER UACC YES
--- NOTE | 2025-04-04 06:09 | PM.HPGS ---
History of Present Illness History of Present Illness Date of Service: 04/04/25 <Charley Corrigan PA-C - Last Filed: 04/04/25 07:58> 04/04/25 <Todd Branham MD - Last Filed: 04/04/25 07:44> Chief complaint: Abdo pain <Charley Corrigan PA-C - Last Filed: 04/04/25 07:58> Narrative: Maribel Underwood is a 64 year old female with PMH significant for breast CA who presented to the ED with abdominal pain. She was awoken Thursday morning with more right sided abd pain which migrated and persisted in the RLQ through out the day. The pain is now constant and worse with movement. She took tylenol for pain without relief. The pain was associated with nausea without vomiting. Due to the severity of pain, she called EMS and was brought to the ED last night. Work up included CBC, BMP, LFTs which was significant for leukocytosis of 11.9. CT scan abd pelvis showed a dilated appendix measuring with wall enhancement and adjacent acute inflammatory stranding with mild free pelvic fluid. No free air or fluid collections. She denies similar episodes of pain, fevers, chills, dysuria. She has a surgical history significant for an abdominal hysterectomy. <Charley Corrigan PA-C - Last Filed: 04/04/25 07:58> Review of Systems Review of Systems: Yes all other systems are reviewed and are negative <Charley Corrigan PA-C - Last Filed: 04/04/25 07:58> [facility] Past Medical History Medical History: Medical History (Updated 04/04/25 @ 04:15 by Carla Hoang DO) History of breast cancer <Charley Corrigan PA-C - Last Filed: 04/04/25 07:58> Surgical History Surgical History: Surgical History (Updated 04/04/25 @ 07:48 by Charley Corrigan PA-C) H/O: hysterectomy <Charley Corrigan PA-C - Last Filed: 04/04/25 07:58> Social History Social History: Social History Smoked in Last 30 Days: No Use of substances other than those prescribed or required for medical reasons: No Advance Directives: No Advance Directives Information Provided: No <Charley Corrigan PA-C - Last Filed: 04/04/25 07:58> Meds Allergies/Adverse reactions: Allergies Allergy/AdvReac Type Severity Reaction Status Date / Time oxycodone Allergy Unknown itching Verified 04/03/25 22:11 <Charley Corrigan PA-C - Last Filed: 04/04/25 07:58> Active Medications: Current Medications Acetaminophen (Acetaminophen 325 Mg Tablet) 650 mg PO Q6H PRN PRN Reason: Pain, Mild 1-3,fever,headache Acetaminophen/Codeine Phosphate (Acetaminophen/Codeine 300-30mg Tablet) 1 tab PO Q4H PRN PRN Reason: Pain, Mild 1-3,fever,headache Sodium Chloride (Ns) 1,000 mls @ 100 mls/hr IVCONT .Q10H [facility] Last Admin: 04/04/25 02:12 Dose: 100 mls/hr Piperacillin Sod/Tazobactam (Sod 3.375 gm/ Sodium Chloride) 50 mls @ 100 mls/hr IV RQ6H [facility] Ketorolac Tromethamine (Ketorolac Tromethamine 15 Mg/Ml Vial) 15 mg IVPUSH RQ6H NICOLA Melatonin (Melatonin 3 Mg Tablet) 6 mg PO BEDTIME PRN PRN Reason: Insomnia Morphine Sulfate (Morphine Sulfate 4 Mg/Ml Cartridge) 3 mg IVPUSH RQ4H PRN; Protocol PRN Reason: Pain, Severe (Pain Scale 7-10) Ondansetron HCl (Ondansetron Hcl 4 Mg/2 Ml Vial) 4 mg IVPUSH Q8H PRN PRN Reason: Nausea and Vomiting Sodium Chloride (0.9 % Sodium Chloride Flush 3 Ml Syringe) 3 ml IVFLUSH QSHIFT [facility] <Charley Corrigan PA-C - Last Filed: 04/04/25 07:58> Physical Exam Vital Signs: Vital Signs: Last Vital Signs Temp 99.1 F 04/04/25 05:49 Pulse 81 04/04/25 05:49 Resp 17 04/04/25 05:49 BP 153/86 H 04/04/25 05:49 Pulse Ox 97 04/04/25 05:49 O2 Del Method Room Air 04/04/25 05:49 BMI result Body Mass Index 25.5 <Charley Tavarezdeau ZAHIRA Graham Last Filed: 04/04/25 07:58> Const: General: comfortable, no acute distress and alert <Charley Delunabodeau FRANKLYNGladysLia Graham Last Filed: 04/04/25 07:58> Orientation/consciousness: patient oriented x3 <Charley Tavarezdeau ZAHIRA Graham Last Filed: 04/04/25 07:58> Resp: Effort & Inspection: normal respiratory effort <Charley Tavarezdeau ZAHIRA Graham Last Filed: 04/04/25 07:58> GI: Inspection: No distended and Yes scar (well healed pfannensteil) <Charley Delunabodeau ZAHIRA Graham Last Filed: 04/04/25 07:58> Palpation (GI): Soft to palpation, Tenderness to palpation present (GI) (mild RLQ) at McBurney's point; with no rebound tenderness and Rovsing's sign negative, no guarding and not rigid <Charley Delunabodeau ZAHIRA Last Filed: 04/04/25 07:58> Percussion: Yes normal to percussion <Charley Tavarezdeau ZAHIRA Graham Last Filed: 04/04/25 07:58> Skin: General skin exam: no rashes or lesions noted <Charley Tavarezdeau ZAHIRA Graham Last Filed: 04/04/25 07:58> Neuro: General: patient oriented x3 and moves all extremities <Charley Delunatoyin ZAHIRA Graham Last Filed: 04/04/25 07:58> Results Results Labs: Short CBC 04/03/25 Range/Units 22:27 WBC 11.9 H (4.8-10.8) X10*3/uL Hgb 12.7 (12.0-16.0) g/dl Hct 35.2 L (37.0-47.0) % Plt Count 227 (160-400) X10*3/uL BMP 04/03/25 22:57 Sodium 138 Potassium 3.9 Chloride 108 Carbon Dioxide 23 BUN 15 Creatinine 0.91 Calcium 9.8 Urine 04/04/25 Range/Units 00:15 Urine Color Yellow Urine Appearance Clear Urine pH 6.0 (5.0-9.0) Ur Specific [place] >= 1.030 H (1.005-1.025) Urine Protein Negative (Neg-Trace) mg/dL Urine Glucose (UA) Negative (Negative) mg/dL <Charley Corrigan PA-C Last Filed: 04/04/25 07:58> Abdomen CT scan report/results: report reviewed and image reviewed <ZAHIRA Hines Last Filed: 04/04/25 07:58> Additional studies: labs reviewed <Charley Corrigan PA-C Filed: 04/04/25 07:58> Assessment and Plan (1) Acute appendicitis: Status: Acute <Charley Corrigan PA-C Filed: 04/04/25 07:58> [age] year old female with abdominal pain since yesterday morning She says this started from the epigastric area and has migrated to the right lower quadrant Abdomen is soft and benign Tenderness in the right lower quadrant Cat scan showing dilatation of the appendix with some inflammatory changes consistent with the acute appendicitis I explained to her the technique of laparoscopic appy and possible open appendectomy Reviewed the risks including but not limited to bleeding, infections, injury to other organs including bowel, staple line leak, as well as the benefits and alternatives She understands the option of antibiotic treatment alone She wants to proceed with the appendectomy Has been placed on the add on schedule in the OR today Seen and examined independently 64 year old female with PMH of breast CA who presented with abd pain x 1 day that migrated and persisted in the RLQ with a leukocytosis and CT demonstrating dilated, thickened appendix with surrounding fat stranding. Clinical picture consistent with acute appendicitis. Treatment options discussed with her including observation and IV abx and laparoscopic appendectomy, possible open. She would like to proceed with surgery. She has been added onto the OR schedule for today. Cont NPO, IVF, IV zosyn. <Charley Corrigan PA-C Last Filed: 04/04/25 07:58> [age] year old female with abdominal pain since yesterday morning She says this started from the epigastric area and has migrated to the right lower quadrant Abdomen is soft and benign Tenderness in the right lower quadrant Cat scan showing dilatation of the appendix with some inflammatory changes consistent with the acute appendicitis I explained to her the technique of laparoscopic appy and possible open appendectomy Reviewed the risks including but not limited to bleeding, infections, injury to other organs including bowel, staple line leak, as well as the benefits and alternatives She understands the option of antibiotic treatment alone She wants to proceed with the appendectomy Has been placed on the add on schedule in the OR today Seen and examined independently <Todd Branham MD - Last Filed: 04/04/25 07:44> Quality Stroke Does the patient have a stroke diagnosis?: No <Charley Corrigan PA-C - Last Filed: 04/04/25 07:58> VTE Prior VTE?: No <Chraley Corrigan PA-C - Last Filed: 04/04/25 07:58> VTE Risk Level:: Surgical - low <Charley Corrigan PA-C - Last Filed: 04/04/25 07:58> VTE Device Contraindication: N/A - Device Ordered <Charley Corrigan PA-C - Last Filed: 04/04/25 07:58> VTE Drug Contraindication: Treatment Not Indicated <Charley Corrigan PA-C - Last Filed: 04/04/25 07:58> Procedures Date of Service Date of Service: 04/04/25 <Charley Corrigan PA-C - Last Filed: 04/04/25 07:58> 04/04/25 <Todd Branham MD - Last Filed: 04/04/25 07:44>
--- NOTE | 2025-04-04 08:03 | P.CONAN_ITS ---
Documented by User: Mouna Ponce NP 04/04/25 08:05 HPI - Anesthesia Eval Consult details Narrative: 64 yr old female for appendectomy, laparoscopic. No recent illness. No CP/SOB with moderate physical activity. S/P hysterectomy many years ago PMFSH Active Problems Active Problems: All Active Problems (Updated 04/04/25 @ 04:15 by Carla Hoang DO) Hx of lumpectomy (Acute) Acute appendicitis (Acute) Past Medical History Medical History History of breast cancer Family History Family history of problems with anesthesia: No Surgical History Surgical History Hx of bilateral breast implants History of lumpectomy of left breast H/O: hysterectomy History of Problems with Anesthesia: No Social History Social History Patient Tobacco Use Status: Never used Tobacco Smoked in Last 30 Days: No Use of substances other than those prescribed or required for medical reasons: No Are you DNR?: No Advance Directives: No Advance Directives Information Provided: No Patient : No Meds Allergies Allergy/AdvReac Type Severity Reaction Status Date / Time oxycodone Allergy Unknown itching Verified 04/03/25 22:11 Active Medications: Current Medications Acetaminophen (Acetaminophen 325 Mg Tablet) 650 mg PO Q6H PRN PRN Reason: Pain, Mild 1-3,fever,headache Acetaminophen/Codeine Phosphate (Acetaminophen/Codeine 300-30mg Tablet) 1 tab PO Q4H PRN PRN Reason: Pain, Mild 1-3,fever,headache Sodium Chloride (Ns) 1,000 mls @ 100 mls/hr IVCONT .Q10H [facility] Last Admin: 04/04/25 02:12 Dose: 100 mls/hr Piperacillin Sod/Tazobactam (Sod 3.375 gm/ Sodium Chloride) 50 mls @ 100 mls/hr IV RQ6H [facility] Last Infusion: 04/04/25 06:52 Dose: Infused Ketorolac Tromethamine (Ketorolac Tromethamine 15 Mg/Ml Vial) 15 mg IVPUSH RQ6H [facility] Last Admin: 04/04/25 06:15 Dose: 15 mg Melatonin (Melatonin 3 Mg Tablet) 6 mg PO BEDTIME PRN PRN Reason: Insomnia Morphine Sulfate (Morphine Sulfate 4 Mg/Ml Cartridge) 3 mg IVPUSH RQ4H PRN; Protocol PRN Reason: Pain, Severe (Pain Scale 7-10) Ondansetron HCl (Ondansetron Hcl 4 Mg/2 Ml Vial) 4 mg IVPUSH Q8H PRN PRN Reason: Nausea and Vomiting Sodium Chloride (0.9 % Sodium Chloride Flush 3 Ml Syringe) 3 ml IVFLUSH QSHIFT NICOLA Exam Height,Weight and Vital Signs: Height 5 ft 3 in Weight 65.4 kg Last Vital Signs Temp 99.1 F 04/04/25 05:49 Pulse 81 04/04/25 05:49 Resp 17 04/04/25 05:49 BP 153/86 H 04/04/25 05:49 Pulse Ox 97 04/04/25 05:49 O2 Del Method Room Air 04/04/25 05:49 Pertinent Lab Results Pertinent Lab Results: Laboratory Tests 04/03/25 04/03/25 04/03/25 22:27 22:55 22:57 WBC 11.9 H RBC 4.22 Hgb 12.7 Hct 35.2 L MCV 83.4 MCH 30.1 MCHC 36.1 H RDW 13.0 Plt Count 227 MPV 8.8 L Immature Gran % (Auto) 0.3 Neut % (Auto) 79.6 H Lymph % (Auto) 14.0 L [place] % (Auto) 4.6 Eos % (Auto) 1.2 Baso % (Auto) 0.3 Lymph # (Auto) 1.7 [place] # (Auto) 0.6 Eos # (Auto) 0.1 Baso # (Auto) 0.0 Abs Immat Gran (auto) 0.04 H Absolute Neuts (auto) 9.5 H Absolute Nucleated RBC 0.000 Nucleated RBC % (auto) 0.0 Hold Purple Top SEE NOTE Sodium 138 Potassium 3.9 Chloride 108 Carbon Dioxide 23 Anion Gap 11 L BUN 15 Creatinine 0.91 Estim Creat Clear Calc 55.3 Estimated GFR > 60 Random Glucose 114 Lactic Acid 0.6 Calcium 9.8 Lipase 25 Hold Green Top See Note Urine Color Urine Appearance Urine pH Ur Specific [place] Urine Protein Urine Glucose (UA) Urine Ketones Urine Blood Urine Nitrite Ur Leukocyte Esterase Urine RBC Urine WBC Ur Squamous Epith Cells Urine Bacteria Hyaline Casts 04/04/25 00:15 WBC RBC Hgb Hct MCV MCH MCHC RDW Plt Count MPV Immature Gran % (Auto) Neut % (Auto) Lymph % (Auto) [place] % (Auto) Eos % (Auto) Baso % (Auto) Lymph # (Auto) [place] # (Auto) Eos # (Auto) Baso # (Auto) Abs Immat Gran (auto) Absolute Neuts (auto) Absolute Nucleated RBC Nucleated RBC % (auto) Hold Purple Top Sodium Potassium Chloride Carbon Dioxide Anion Gap BUN Creatinine Estim Creat Clear Calc Estimated GFR Random Glucose Lactic Acid Calcium Lipase Hold Green Top Urine Color Yellow Urine Appearance Clear Urine pH 6.0 Ur Specific [place] >= 1.030 H Urine Protein Negative Urine Glucose (UA) Negative Urine Ketones Negative Urine Blood Negative Urine Nitrite Negative Ur Leukocyte Esterase Trace H Urine RBC 0-2 Urine WBC 0-5 Ur Squamous Epith Cells 0-2 Urine Bacteria None Seen Hyaline Casts 0-2 Airway Mallampati Class: II TM Dist: >3cm Neck ROM: Full Loose/Missing/Broken Teeth: No Heart: RRR Lungs: CTAB Assessment and Plan Final Anesthetic Review Family History of Problems with Anesthesia: No History of Problems with Anesthesia: No Documented by User: Hayden Oliva MD 04/04/25 09:01 [facility] Past Medical History Medical History History of breast cancer Functional capacity: independent ambulation Patient : No Surgical History Surgical History Hx of bilateral breast implants History of lumpectomy of left breast H/O: hysterectomy Social History Social History Patient Tobacco Use Status: Never used Tobacco Smoked in Last 30 Days: No Use of substances other than those prescribed or required for medical reasons: No Are you DNR?: No Advance Directives: No Advance Directives Information Provided: No Patient : No Meds Allergies Allergy/AdvReac Type Severity Reaction Status Date / Time oxycodone Allergy Unknown itching Verified 04/03/25 22:11 Exam Exam Date and Time: 04/04/2025 Airway Other: normal Assessment and Plan Assessment Anesthesia Assessment: Anesthesia Plan Discussed Final Anesthetic Review NPO: Yes ASA Class: II Final Preanesthetic Review: No Changes in Pt Med Stat, Meds/Allgs Chart Reviewed, Consent Obtained/Reviewed and Anes Risks/Benef Reviewed Patient Risk: Low Procedure Risk: Low Anesthetic Plan Anesthetic Plan: GA Disposition: Standard PACU
--- NOTE | 2025-04-04 08:15 | PC.NURSE ---
Pt A&O X4 VSS Awaare of plan for OR NAD No complaints at this time.
[2025-04-04] MEDS: Lactated Ringers 1,000 ML 80 ML IVCONT (08:53)
--- NOTE | 2025-04-04 09:58 | W.PM.OPN ---
Operative Note Operative Note Date of Service: 04/04/25 Narrative: Preop diagnosis: Acute appendicitis Postop diagnosis: Acute appendicitis, very indurated appendix from the proximal 3rd all the way to the tip, with fibrinous exudates Procedure: Laparoscopic appendectomy Surgeon: Todd Branham MD certified nursing assistant: FRANKLYN Corrigan The patient is a 64 year old female with right lower quadrant pain and tenderness. Her CAT scan was consistent with the acute appendicitis. She understood the technique of the planned procedure. She was aware of the risks, benefits, and alternatives. She was brought to the operating room. She was placed supine under general anesthesia via endotracheal tube. A Schroeder catheter was inserted. The abdomen was prepped and draped in the usual sterile fashion. A surgical time-out was done. The patient was on scheduled IV antibiotics I made a short infraumbilical incision with a blade 15. This carried down through the full-thickness of the skin and subcutaneous fat down to the fascia. The fascia was incised. The peritoneum was entered. Through this incision a Chairez port was introduced. Pneumoperitoneum was introduced to a pressure of 15 mm Hg and from here on the rest of the procedure was done under vision with the 5 mm 30 degree laparoscope. The the patient is placed in a head-down position in the left side down position. With laparoscopic coping visualization I inserted a 5/12 mm port in the left lower quadrant as well in the suprapubic margin of the midline. Graspers were placed through these working ports. I small bowel loops were reflected away from the right lower quadrant. The cecum was seen and attached to this was a very inflamed, indurated and distended appendix from the proximal 3rd distally. I was able to apply a grasper at the appendix to put this on stretch. I used the [place] dissector to define the base and create a mesenteric window. I then proceeded to use a 45 mm Endo-BALBIR through the umbilical port with the camera on the left lower quadrant port, and this was positioned across the base. This was fired and the appendix was completely transected I resected the attached mesoappendix using the LigaSure until the entire appendix was completely . This was retrieved through an endobag through the umbilical incision. I reinserted all ports and re-insufflated. I examined the area of dissection. There was note of good hemostasis. I observed all 4 quadrants. There was no evidence of any bowel injury or any other pathology Once hemostasis was reconfirmed the by proceeded to then desufflated the port sites. I removed all ports under vision with the laparoscope. The umbilical port was removed last. The fascia of the umbilical incision was closed with a [id number] Polysorb 0 stitch. Skin closure was achieved with Polysorb 4-0 subcuticular sutures. All incisions were infiltrated with Marcaine 0.5% for postop analgesia. Dressings were applied. The procedure was completed The patient tolerated the procedure well. There were no immediate complications. Initial and final counts of sponges and instruments were correct. Estimated blood loss was less than 20 cc. The patient was extubated without difficulty and transferred to the recovery room with stable vital signs.
--- NOTE | 2025-04-04 10:33 | PHA.MEDREC ---
Pharmacy Consult ? Medication Reconciliation Pharmacy has completed the medication reconciliation. Reviewed med rec done by nursing, no pharmacy claims.
[2025-04-04] MEDS: Albuterol/Iprat 2.5/0.5MG 3 ML AMPUL.NEB INHALE (10:50)
--- NOTE | 2025-04-04 13:01 | MHC.CM.PN ---
Addendum entered by Edith Rascon 04/04/25 15:12: DP: PT HAS BEEN MEDICALLY CLEARED FOR DC HOME, NO SERVICES. PT HAS OWN RIDE HOME. Original Note: CM MET WITH PT AT BEDSIDE. PT IS FUNCTIONALLY INDEPENDENT AND IS EMPLOYED P/T. NO SERVICES OR DME. +HCP (COPY AT HOME) PCP SEAN ESTES DP: HOME, NO SERVICES ANTICIPATED. PT HAS OWN RIDE HOME. CM WILL CONTINUE TO FOLLOW FOR ANY CHANGE TO DC PLAN/NEEDS.
--- NOTE | 2025-04-04 15:00 | PM.EVENT ---
Event Note Date of Service: 04/04/25 Event Note: Seen postop Underwent uneventful laparoscopic appendectomy earlier Says she has good pain control Looks well Stable vital signs Abdomen is soft Dressings dry Tolerated regular diet Says she is ready to be discharged Okay to DC home Oral pain meds Instructions reinforced with the patient Follow up in the office Time Spent With Patient Time: Total time managing care of this patient today ____ minutes.
--- NOTE | 2025-04-04 17:30 | P.DS_ITS ---
DS: Providers Provider Date of Service: 04/04/25 Date of admission: 04/04/25 01:12 Date of discharge: 04/04/25 Primary care physician: Bre Mesa PA-C Attending physician on admission: Qiana Murguia Attending physician on discharge: Todd Branham DS: Diagnosis Discharge Diagnosis (1) Acute appendicitis: Status: Acute DS: Summary Hospital Course Hospital Course: HPI AT ADMISSION: Maribel Underwood is a 64 year old female with PMH significant for breast CA who presented to the ED with abdominal pain. She was awoken Thursday morning with more right sided abd pain which migrated and persisted in the RLQ through out the day. The pain is now constant and worse with movement. She took tylenol for pain without relief. The pain was associated with nausea without vomiting. Due to the severity of pain, she called EMS and was brought to the ED last night. Work up included CBC, BMP, LFTs which was significant for leukocytosis of 11.9. CT scan abd pelvis showed a dilated ap pendix measuring with wall enhancement and adjacent acute inflammatory stranding with mild free pelvic fluid. No free air or fluid collections. She denies similar episodes of pain, fevers, chills, dysuria. She has a surgical history significant for an abdominal hysterectomy. HOSPITAL COURSE: The patient was admitted to the surgical service for further treatment of the acute appendicitis. She elected to proceed with laparoscopic appendectomy. She was added onto the OR schedule for that day. On 04/04/25, a laparoscopic appendectomy was performed by Dr. Branham without complication. The patient tolerated the procedure well. She had an uncomplicated recovery course. She was reassessed later in the day and she felt well and was tolerating a solid diet without nausea or vomiting, had good pain control and was ambulating without difficulty. She was hemodynamically stable. Her abdomen was benign with appropriate post op tenderness and clean and intact dressings. She felt ready for discharge. She was discharged to home on 04/04/25 in stable condition. She is to follow up in the office in 1-2 weeks. Status at Discharge Functional status at discharge: independent ambulation Overall status at discharge: patient is progressing back to baseline Time Attestation Discharge Coordination Time (in mins): 25 Quality: Safe Use of Opioids Does Pt have an Active Cancer Diagnosis on the Problem List?: No Quality: Stroke Does the patient have a stroke diagnosis?: No Physical Exam Vital Signs: Vital Signs: Last Vital Signs Temp 97.8 F 04/04/25 15:07 Pulse 89 04/04/25 15:07 Resp 16 04/04/25 15:07 BP 159/79 H 04/04/25 15:07 Pulse Ox 92 04/04/25 15:07 O2 Del Method Room Air 04/04/25 15:07 O2 Flow Rate 3.0 04/04/25 11:50 BMI result Body Mass Index 26.8 Const: General: comfortable, no acute distress and alert Resp: Effort & Inspection: normal respiratory effort GI: Inspection: Yes incision (dressings clean and intact) Palpation (GI): Soft to palpation, Tenderness to palpation present (GI) (mild incisional) and no guarding DS: Data Data Completed and Pending Pending studies at discharge: Pending at discharge 04/04/25 09:49 Surgical [PTH] Routine Labs on day of discharge: Preliminary micro results at discharge 04/03/25 23:03 Blood Culture - Preliminary Blood - Venous No growth after 24 hours. 04/03/25 22:55 Blood Culture - Preliminary Blood - Venous No growth after 24 hours. Discharge Plan Discharge Anticipated Discharge Date/Time: 04/04/25 15:03 Patient Disposition: Home, Self-Care Discharge Diagnosis: acute appendicitis, s/p laparoscopic appendectomy Referrals: Bre Galicia PA [Primary Care Provider, Family Practice] - 1 Week Todd Branham MD [Physician, General Surgery] - 1 Week Discharge Medications: New tramadol 50 mg tablet 50 mg PO Q4H PRN (Reason: pain (scale score 7-10)) Qty: 24 0RF docusate sodium [Colace] 100 mg capsule 100 mg PO BID PRN (Reason: constipation) Qty: 30 0RF ibuprofen 600 mg tablet 600 mg PO Q6H PRN (Reason: pain) Qty: 25 0RF Discharge Orders: Discharge Order (Routine); Ordered 04/04/25 Ordered By: Todd Branham Diet: Advance to usual diet Activity on Discharge: No heavy lifting Stand Alone Forms: Patient Portal Discharge page Print Language: Mozambican Activity Restrictions/Additional Instructions: If the incision area is tender, you may apply an ice pack for short intervals (No more than 20 minutes on, followed by at least 20 minutes off). Do not apply heat. Do not use creams, lotions, or topical antibiotics. These can cause infection or allergic reaction. Ok to shower 24 hours after your surgery. Remove bandaids in 2 days. You have steri strips (small white strips) covering your incision- these will fall off ~1 week. Follow up in office with Dr. Branham in 1-2 weeks. ([phone]) No heavy lifting (>10-20lbs) or strenuous activity! Call Your Doctor If: -Your temperature exceeds 101.5? F -You experience excessive pain or swelling -You have an unexpected reaction to medication -You have excessive bleeding -You experience continued vomiting/nausea -Your incision begins to separate -Your incision shows signs of infection such as increased redness, swelling, excessive pain, drainage (light blood or clear fluid is normal) or heat Care Plan Goals: Return to baseline health and resume normal activities following recovery period. Health Concerns: acute appendicitis Plan of Treatment: s/p laparoscopic appendectomy f/u in office in 1-2 weeks pain control Assessment: Doing well post op. Discharge Date/Time: 04/04/25 15:46
== END 2025-04-04 15:46 | disposition home or self-care (01) | DRG 234 ==
LOC: HO.ED 22:50 → HO.EDOVER 04-04 01:40 → HO.S3 04-04 07:35
PROVIDERS: Surgery; Admitting Provider Surgery; Emergency Provider Emergency Medicine; PCP Physician Assistant; Visit Provider Surgery
PROC: 0DTJ4ZZ Resection of Appendix, Percutaneous Endoscopic Approach (ICD-10-PCS; CPT 44970; principal; 2025-04-04 09:20)
DX: K35.80 Unspecified acute appendicitis (principal); Z85.3 Personal history of malignant neoplasm of breast
CPT/HCPCS: 36415; 74177; 80048; 81001; 83605; 83690; 85025; 87040; 88304; 99285; J0131; J0330; J1100; J1171; J1885; J2003; J2405; J2543; J2704; J2795; J3010; J7120; Q9967

== ENCOUNTER → 2025-04-03 22:51 | Outpatient (BNV) | payer BC, SELFPAY | PROVIDERS: Admitting Provider Surgery; Emergency Provider Emergency Medicine; PCP Physician Assistant; Visit Provider Radiology Neuroradiology | DX: K37 Unspecified appendicitis (principal); K76.89 Other specified diseases of liver | CPT/HCPCS: 74177 ==

== ENCOUNTER → 2025-04-04 01:12 | Outpatient (BNV) | payer BC, SELFPAY | PROVIDERS: Admitting Provider Surgery; Emergency Provider Emergency Medicine; PCP Physician Assistant; Visit Provider Surgery | DX: K35.80 Unspecified acute appendicitis (principal) | CPT/HCPCS: 44970; 99235; 99499 ==

== ENCOUNTER 2025-05-19 02:59 | Inpatient (IN) | payer MEDICARE, BC, SELFPAY ==
--- OUTSIDE RECORDS SUMMARY | 2011-02-06 | XMS_ITS | Encounter Summary ---
Author Organization Blas Yang [facility] Address [address] [place] [address] Phone Care Team Providers Care Physical Therapy Nurse Name Role Phone Unavailable Primary Care Provider Unavailabl e Encounter Details Date Type Department Care Team (Late st Contact Info) Description 02/06/2011 Hospital Encounter [facility],Outside Imaging [address] [place], [place] [phone] Unknown, Unknown, Social History Tobacco Use Types [...] Answer Date Recorded Are you interested in more education? Not on ml e 04/03/2025 Are you concerned about learning? Not on file 04/03/2025 No 04/03/2025 No 04/03/2025 Food Answer Date Recorded Within the past [...] 02/22/2021 Digital Access Answer Date Recorded No 04/03/2025 No 04/03/2025 Reliable internet access at home? Not on file 04/03/2025 Device with a working camera? Not on file Intimate Partner Violence Answer Date R ecorded [...] not for interpretation. us Unknown Unknown MD [facility] OUTSIDE IMAGING W/OUT INT ERPRETATION Final Result documented in this encounter Visit Diagnoses Not on filedocumented in this encounter Additional Source Comments The information contained in this document represents components of the legal health record. It is not the complete legal health record.[facility]
--- OUTSIDE RECORDS SUMMARY | 2011-07-22 01:00 | XMS_ITS | Encounter Summary ---
Author Organization Blas Yang [facility] Address [address] [place] [address] Phone Care Team Providers Care Sales Service Professional Name Role Phone Unavailable Primary Care Provider Unavailabl e Encounter Details Date Type Department Care Team (Late st Contact Info) Description 07/22/2011 Hospital Encounter [facility],Outside Imaging [address] [place], [place] [phone] Unknown, Unknown, Social History Tobacco Use Types [...] Comments BI MAMMOGRAM OUTSIDE (NO INTERPRETATION) Routine 07/22/2011 12:00 AM EST documented in this encounter Results * Mammogram Outside (No Interpretation) (07/22/2011 12:00 AM EST) Narrative Record, 09/13/2024 3:01 PM EST This study is for PACS [...] It is not the complete legal health record.[facility]
--- OUTSIDE RECORDS SUMMARY | 2025-05-15 08:40 | XMS_ITS | Encounter Summary ---
Author Organization [facility] Address [address] [place] [address] Phone Care Team Providers Care Macaroni Press Operator Name Role Phone Mak Pham MD Unavailable [phone] Bre Galicia Primary Care Provider [phone] Encounter Details Date Type Department Care Team (Late st Contact Info) Description 05/15/2025 8:40 AM EDT - 05/15/2025 11:59 PM EDT Hospital Encounter [facility] [address] [place] [address] Bre Galicia PA [address], [place] [id number] [email or web address] [email or web address] Disposition: Home or Self Care Social History Tobacco Use Types Packs/Day Years [...] enough money to get more. Never True 08/29/202 3 Residential Stability Answer Date Recor ded What [...] on file documented as of this encounter Medications at Time of Discharge acetaminophen (TYLENOL) 325 mg tablet Take 1 tablet by mouth every 6 (six) hours as needed. ascorbic acid, vitamin C, (VITAMIN C) 500 MG tablet Take 500 mg by mouth daily. cholecalciferol (VITAMIN D3) 2,000 unit tablet Take 2,000 Units by mouth daily. microfibrillar collagen (INSTAT) powder Apply topically as needed. vitamin A,C,G-bwah-labsf r (OCUVITE PRESERVE) 7,160 unit- 113 mg-100 unit Tab Take 1 tablet by mouth daily. documented as of this encounter Plan of Treatment Pending Results Name Type Priority Associated Diagnoses Date /Time Pap Test Pathology and Cytology Routine 12:00 AM EDT Scheduled Orders Name Type Priority Associated Diagnoses Orde r Schedule Pap Test Pathology and Cytology Routine On ce for 1 Occurrences starting 05/16/2025 until 05/16/2025 documented as of this encounter Visit Diagnoses Not on filedocumented in this encounter Additional Health Concerns Assessment Noted Time PHQ-2 Depression Total Score: 0 03/31/20 23 12:53 PM EDT documented as of this encounter Care Teams [employer]i [employer] Operator Relationship Specialty Start Date End Date Bre Galicia PA [address] [place] [id number] [email or web address] PCP - General Physician Water Plant Operator 09/13/24 Mak Pham MD [address] [place] [address] [email or web address] Insurance Assigned Provider 02/06/24 documented as of this encounter Additional Source Comments The information contained in this document represents components of the legal health record. It is not the complete legal health record.[facility]
[2025-05-19] VITALS (7 sets, daily range): BP systolic 144–192; BP diastolic 67–103; PULSE 67–103; RESP 16–20; TEMP 36.2–36.9; O2SAT 94–98; BMI 26.2; BMI 23.2
--- NOTE | ~2025-05-19 | CT_ITS ---
CLINICAL HISTORY: Epigastric; RUQ and R Flank pain tenderness; N V CT abdomen and pelvis with contrast Comparison: 04/03/2025 Findings: No consolidation or effusion. There is a sliding-type hiatal hernia. There are circumscribed hepatic lesions, unchanged, possible incidental cysts. Unremarkable gallbladder and solid organs. No urolithiasis. There are distended loops of small bowel with transition point in the mid pelvis. No pneumoperitoneum or pneumatosis. Pelvic contents unremarkable. The bones are intact. IMPRESSION: Small-bowel obstruction. This document has been electronically signed by: Rudolph Nolasco MD on 05/19/2025 04:34:36
--- NOTE | 2025-05-19 03:16 | ED.ABDPAIN ---
HPI - Abdominal Pain General Chief Complaint: Abdominal Pain Stated Complaint: abd pain Time Seen by Provider: 05/19/25 03:08 Source: patient and family Mode of arrival: ambulatory Limitations: no limitations History of Present Illness ED Provider: Lloyd ESTES HPI narrative: The patient is a 64-year-old female with remote history of lumpectomy for breast cancer 30 years ago, as well as appendectomy 2 months ago, as well as hypertension, presenting to the ED for evaluation of sudden onset burning right upper quadrant and epigastric abdominal pain radiating to the back and the right flank. The patient reports she was at home at rest around midnight when the symptoms began suddenly without provocation. Patient reports since that time she has suffered 6 episode of nonbloody vomitus. Patient denies associated fever, diarrhea, hematochezia, melena, urinary symptoms, chest pain, shortness of breath, recent sick contacts, or recent trauma. The patient denies daily alcohol use. The patient denies history of kidney stones or gallstones. The patient reports she did just start on losartan for her high blood pressure. Related Data Previous Rx's ?Medication ?Instructions ?Recorded docusate sodium 100 mg capsule 100 mg PO BID PRN constipation #30 04/04/25 (Colace) caps ibuprofen 600 mg tablet 600 mg PO Q6H PRN pain #25 tabs 04/04/25 tramadol 50 mg tablet 50 mg PO Q4H PRN pain (scale score 04/04/25 7-10) #24 tabs Allergies Allergy/AdvReac Type Severity Reaction Status Date / Time oxycodone Allergy Unknown itching Verified 05/19/25 03:06 Review of Systems Review of Systems Yes all other systems are reviewed and are negative [facility] Past Medical History Medical History (Updated 05/19/25 @ 04:45 by Lloyd Costa PA-C) History of breast cancer Surgical History (Updated 04/24/25 @ 08:53 by ALICIA Bello) History of laparoscopic appendectomy (04/04/25) Hx of bilateral breast implants History of lumpectomy of left breast H/O: hysterectomy Social History Social History Household Members: Spouse Housing: House Do you presently have visiting nurse or other home services: No Comment: counts correct Patient Tobacco Use Status: Never used Tobacco Smoked in Last 30 Days: No Second Hand Smoke Exposure: No Use of substances other than those prescribed or required for medical reasons: No Advance Directives: No Advance Directives Information Provided: Yes service: No Physical Exam ED Vital Signs: Vital Signs - 24 hr 05/19/25 03:05 05/19/25 03:23 05/19/25 03:29 Temperature 97.7 F Pulse Rate 103 H 90 Respiratory Rate 16 18 20 Blood Pressure 192/99 H 165/103 H Pulse Oximetry 95 95 Oxygen Delivery Method Room Air Room Air 05/19/25 05:55 Temperature 98.1 F Pulse Rate 101 H Respiratory Rate 20 Blood Pressure 156/79 H Pulse Oximetry 95 Oxygen Delivery Method Room Air BMI result Body Mass Index 26.2 CONSTITUTIONAL: The patient appears in obvious discomfort, but otherwise non-toxic, well nourished and in no acute distress. Vital signs as documented. HEAD: Atraumatic, normocephalic. EYES: EOMs grossly intact, pupils equal, conjunctiva clear, no exudate. ENT: Nares patent, no discharge. Airway patent, no audible stridor, visible mucosa is pink and moist without noted lesions. NECK: Trachea is midline, no obvious masses or gross abnormalities. CHEST: Symmetric movement, normal appearance. LUNGS: LS present and CTAB, no w/r/r. Non-labored work of breathing. CARDIAC: Regular Rhythm, S1/S2 appreciated, no murmurs, rubs or gallops. ABDOMEN: Abdomen soft x4 quadrants, positive tenderness to palpation of the epigastrium and right upper quadrant, negative Bishop's, negative rebound, no palpable masses or organomegaly. Negative CVAT bilaterally. : Deferred. EXTREMITIES: Normal tone, moves all extremities spontaneously without reported pain. No obvious acute injury or deformity noted. NEURO: Alert and oriented x3, CN II-XII appear grossly intact. Cerebellar Functioning grossly intact. No obvious sensory or motor deficits. Speech clear and appropriate. PSYCH: normal affect, appropriate eye contact, fluid speech, with appropriate response to questioning. No reported suicidality or homicidality. SKIN: Warm, dry, color appropriate, normal turgor. No rashes noted. Course Course Course Narrative: admitted inpatient TE 05/19/25 617am Medical Decision Making Medical Decision Making MDM Narrative: 3:17 AM 05/19/2025 (Delicia ESTSE): The patient is a 64-year-old female with remote history of lumpectomy for breast cancer 30 years ago, as well as appendectomy 2 months ago, as well as hypertension, presenting to the ED for evaluation of sudden onset burning right upper quadrant and epigastric abdominal pain radiating to the back and the right flank. The patient reports she was at home at rest around midnight when the symptoms began suddenly without provocation. Patient reports since that time she has suffered 6 episode of nonbloody vomitus. Patient denies associated fever, diarrhea, hematochezia, melena, urinary symptoms, chest pain, shortness of breath, recent sick contacts, or recent trauma. The patient denies daily alcohol use. The patient denies history of kidney stones or gallstones. The patient reports she did just start on losartan for her high blood pressure. Patient arrives to the ED hypertensive and borderline tachycardic, in obvious discomfort. The patient is exam reveals marked tenderness of the epigastrium and right upper quadrant, negative rebound, negative Bishop's, negative CVAT bilaterally. Remainder of exam is benign. The patient's presentation is concerning for possible cholecystic pathology, versus less likely ureterolithiasis. The patient will be treated with IV fluid hydration, morphine, Zofran, and we will obtain basic laboratory evaluation and CT abdomen and pelvis. Pending unremarkable CT abdomen and pelvis patient will require right upper quadrant ultrasound when available. 4:42 AM 05/19/2025 (Delicia ESTES): The patient's CT has resulted and shows an SBO with transition point in the mid pelvis. The patient's case has been sent to Dr. Branham from the surgical service. Dr. Branham states he will come to the ED to evaluate the patient in person this morning, will make admission decision at that time. Admission/Observation Consideration of admission/observation: Escalation of care including admission/observation considered Lab Data MDM Lab Attestation statement: I reviewed the patient's lab results. 05/19/25 03:24 05/19/25 03:24 Labs: Lab Results 05/19/25 05/19/25 Range/Units 03:24 04:51 WBC 12.9 H (4.8-10.8) X10*3/uL RBC 4.97 (4.20-5.50) X10*6/uL Hgb 14.2 (12.0-16.0) g/dl Hct 42.3 D (37.0-47.0) % MCV 85.1 (80.0-98.0) fL MCH 28.6 (27.0-33.0) pg MCHC 33.6 (31.0-35.0) g/dl RDW 13.0 (11.0-16.0) % Plt Count 284 D (160-400) X10*3/uL MPV 9.3 L (9.4-12.3) fL Immature Gran % (Auto) 0.4 (0.0-0.4) % Neut % (Auto) 85.8 H (45-73) % Lymph % (Auto) 9.6 L (20-40) % [place] % (Auto) 2.2 (2-11) % Eos % (Auto) 1.6 (0-4) % Baso % (Auto) 0.4 (0-2) % Lymph # (Auto) 1.2 (1.2-4.9) X10*3/uL [place] # (Auto) 0.3 (0.1-1.2) X10*3/uL Eos # (Auto) 0.2 (0.0-0.4) X10*3/uL Baso # (Auto) 0.1 (0.0-0.2) X10*3/uL Abs Immat Gran (auto) 0.05 H (0.00-0.03) X10*3/uL Absolute Neuts (auto) 11.1 H (2.0-8.3) x10*3/uL Absolute Nucleated RBC 0.000 (0.0-0.012) X10*3/uL Nucleated RBC % (auto) 0.0 (0.0-0.2) /100WBC Sodium 141 (135-145) mmol/L Potassium 3.9 (3.3-5.1) mmol/L Chloride 106 (96-108) mmol/L Carbon Dioxide 24 (22-29) mmol/L Anion Gap 15 (12-20) BUN 22 H (9-16) mg/dL Creatinine 0.99 (0.5-1.4) mg/dL Estim Creat Clear Calc 51.4 Estimated GFR 56 Random Glucose 157 H (60-115) mg/dL Calcium 10.6 H D (8.4-10.2) mg/dL Total Bilirubin 0.6 (0.0-1.0) mg/dL AST 30 (5-31) U/L ALT 17 (0-31) U/L Alkaline Phosphatase 86 (39-117) U/L Total Protein 8.1 H (6.5-8.0) g/dL Albumin 5.0 (3.5-5.0) g/dL Lipase 39 (8-78) U/L Urine Color Yellow Urine Appearance Clear Urine pH 6.0 (5.0-9.0) Ur Specific [place] >= 1.030 H (1.005-1.025) Urine Protein Trace (Neg-Trace) mg/dL Urine Glucose (UA) Negative (Negative) mg/dL Urine Ketones Negative (Negative) mg/dL Urine Blood Negative (Negative) Urine Nitrite Negative (Negative) Ur Leukocyte Esterase Negative (Negative) Radiology Impression Discussion of test interpretation with radiology: I have reviewed the radiologist's reading. External Record Review External record reviewed: Outpatient record and Prior outpatient labs Chronic Conditions Patient?s care impacted by: Hypertension Medications Administered Discontinued Medications Generic Name Dose Route Start Last Admin Trade Name Freq PRN Reason Stop Dose Admin Sodium Chloride 1,000 mls @ 999 mls/hr 05/19/25 03:15 05/19/25 04:44 Ns IV 05/19/25 04:15 Infused .Q1H1M NICOLA Infusion Iohexol 100 ml 05/19/25 03:52 05/19/25 03:52 Iohexol 350 Mg/Ml 100 Ml Infus..Btl IV 05/19/25 03:53 85 ml ONCE ONE Administration Morphine Sulfate 4 mg 05/19/25 03:13 05/19/25 03:23 Morphine Sulfate 4 Mg/Ml Cartridge IVPUSH 05/19/25 03:14 4 mg ONCE ONE Administration Protocol Ondansetron HCl 4 mg 05/19/25 03:13 05/19/25 03:24 Ondansetron Hcl 4 Mg/2 Ml Vial IVPUSH 05/19/25 03:14 4 mg ONCE ONE Administration Discharge Plan Discharge Clinical Impression: Small bowel obstruction Patient Disposition: Admitted As Inpatient Print Language: Tajik
[2025-05-19 03:28] LABS: MANUAL DIFF FLAG NO
[2025-05-19 03:36] LABS: Hematocrit 42.3 % (37.0-47.0); Hemoglobin 14.2 g/dl (12.0-16.0); Imm Gran Abs Auto 0.05 X10*3/uL (0.00-0.03); Imm Gran Pct Auto 0.4 % (0.0-0.4); Lymphocytes Absolute Auto 1.2 X10*3/uL (1.2-4.9); Mean Corpuscular HGB Conc 33.6 g/dl (31.0-35.0); Mean Corpuscular Hemoglobin 28.6 pg (27.0-33.0); Mean Corpuscular Volume 85.1 fL (80.0-98.0); NRBC Abs Auto 0.000 X10*3/uL (0.0-0.012); NRBC Pct Auto 0.0 /100WBC (0.0-0.2); Platelet Count 284 X10*3/uL (160-400); Red Blood Count 4.97 X10*6/uL (4.20-5.50); White Blood Count 12.9 X10*3/uL (4.8-10.8)
[2025-05-19 03:44] LABS: Alanine Aminotransferase 17 U/L (0-31); Albumin Level 5.0 g/dL (3.5-5.0); Alkaline Phosphatase 86 U/L (39-117); Anion Gap 15 (12-20); Aspartate Amino Transferase 30 U/L (5-31); Blood Urea Nitrogen 22 mg/dL (9-16); Calcium 10.6 mg/dL (8.4-10.2); Carbon Dioxide 24 mmol/L (22-29); Chloride 106 mmol/L (96-108); Creatinine Clr Calc Pharmacy 51.4; Estimated Glomerular Filt Rate 56; Lipase 39 U/L (8-78); Potassium 3.9 mmol/L (3.3-5.1); Sodium 141 mmol/L (135-145); Total Protein 8.1 g/dL (6.5-8.0)
[2025-05-19] MEDS: iohexoL 350 MG/ML 100 ML INFUS..BTL IV (03:52)
--- OUTSIDE RECORDS SUMMARY | 2025-05-19 03:58 | XMS_ITS | Clinical Summary ---
Author Organization [facility] Address [address] [place] [phone] Phone Care Team Providers Care Brick Handler Name Role Phone Mak Pham MD Unavailable [phone] Bre Galicia Primary Care Provider [phone] Allergies No known active allergies Medications acetaminophen [...] chemo and radiation then breast implants 2008. Encounters Date Type Department Care Team Description 05/15/2025 8:40 AM EDT - 05/15/2025 11:59 PM EDT Hospital Encounter [facility] [address] [place] [address] Bre Galicia PA Discharge Disposition: Home or Self Care from Last 3 Months Immunizations Immunization Administration Dates Next Due COVID-19 [...] Booster 05/04/2024 05/04/2014 INFLUENZA VACCINE (#1) 2025 1, 05/07/2020, 08/25/2019, Additional history exists COVID-19 VACCINE ( season) 2025 08/30/2021, 09/03/2020, 08/06/2020 SCREENING FOR [...] be notified of the results and recommendations. Shelby Ervin NP IMG MG EXAMS Final Result * (ABNORMAL) Lipid panel (03/31/2023 2:19 PM EDT) HDL 103 mg/dL [facility] Comment: Interpretation <40 mg/dL: Low HDL cholesterol (major risk factor for CHD) Greater than or equal to 60 mg/dL: High HDL cholesterol ( negative risk factor for CHD) HDL - cholesterol is affected by a number of factors, e.g. smoking, excerise, hormones, sex and age. CHOLESTEROL 227 0 - 240 mg/dL [facility] TRIGLYCERIDES 81 30 - 160 mg/dL [facility] LDL 108 50 - 129 mg/dL [facility] Comment: LDL levels in terms of risk for coronary heart disease: <100 mg/dL: Optimal 100-129 mg/dL: Near or above optimal 130-159 mg/dL: Borderline high 160-189 mg/dL: High >190 mg/dL: Very High CARDIAC RISK RATIO 2.2(L) 3.3 - 4.4 C [facility] Blood 03/31/2023 2:19 PM EDT 03/31/2023 2:22 PM EDT Shelby Ervin NP LAB BLOOD ORDERABLES Final Resu lt Performing Organization Address [facility] Co de Phone Number [address] [phone] * Hepatitis C antibody, qualitative (08/25/2019 2:54 PM EST) HCV NON-REACTIV E NON-REACTI VE [facility] Blood 08/25/2019 2:5 4 PM EST 08/25/2019 2:58 PM EST Shelby Ervin NP LAB BLOOD ORDERABLES Final Resu lt Performing Organization Address [facility] Co de Phone Number [address] [address] from Last 3 Months or Most Recently Relevant to Health Maintenance Insurance [facility] Member Subscriber Plan / Payer (Ef fective 2023-Present) Name:Maribel Underwood Relation to Subscriber:Spouse Name:KENYONDUSTIN Shi Date of :1900 (Home) Address: [address] [place] [address] Payer ID:[id number] (NAIC) Type:HMO Address: [address] [place], [place] [address] [facility] [address] Care Teams Brick Handler Relationship Specialty Start Date End Date Bre Galicia PA [address] [place] [phone] [email or web address] PCP - General Physician Brush Holder Inspector 09/13/24 Mak Pham MD [address] [place] [phone] [email or web address] Insurance Assigned Provider 02/06/24 Additional Source Comments The information contained in this document represents components of the legal health record. It is not the complete legal health record.[facility]
--- OUTSIDE RECORDS SUMMARY | 2025-05-19 03:58 | XMS_ITS | Patient Health Record ---
[facility] Address [address] [place] [address] Care Team Providers Care Cartoon Animator Name Role Phone Shelby Ervin NP Primary Care Provider Nicolas Sanchez Unavailable [phone] Allergies Allergen (clinical drug ingredient) Drug/Non Drug [...] Contracture of joint of left foot (disorder) (887526567188769) Contracture , left foot (M24.575) Active confirmed Problem Acquired hammer toe of left foot ([id number] ) Hammer toe of left foot (M20.42) Active confirmed Plan Of Treatment Pending Test Test Name Order Date X ray : Foot, left 3V 11/30/2020 X ray : Foot, left 3V 12/26/2020 Insurance Providers Payer Name Payer Address Payer Phone Subscriber Number Group Number Insured Name Patient Relationship to Insured Coverage Start Date Coverage End Date Blue Benefits [address] [address] [place] [address] [id number] Maribel Underwood Self - patient is the insured Medical (General) History Medical History History ICD Code Breast Cancer Chicken pox Transfusions Surgical History Surgery Date(Month/Year) Breast Lumpectomy 07/1998 breast reconstruction 08/2008 hysterectomy 11/2008
--- OUTSIDE RECORDS SUMMARY | 2025-05-19 03:58 | XMS_ITS | Encounter Summary ---
Author Organization [facility] Address [address] [place] [address] Phone Care Team Providers Care Paper Production Engineer Name Role Phone Shelby Ervin NP Primary Care Provider [phone] Unknown, Unknown Primary Care Provider Mak Tirado MD Unavailable [phone] Bre Galicia Primary Care Provider [phone] Encounter Details Date Type Department Care Team (Late st Contact Info) Description 03/31/2023 Procedure Pass [facility] [address] [place] [address] Social History Tobacco Use Types Packs/Day Years [...] high school, GED, job training, learning the Yoruba language, technical skills, or developing parenting skills)? [...] documented as of this encounter Care Teams Paper Production Engineer Relationship Specialty Start Date End Date Shelby Ervin NP PCP - General Family Medicine 01/21/21 10/04/23 Unknown, Unknown, PCP - General 10/05/23 09/12/24 Bre Galicia PA [address] [place] [phone] [email or web address] PCP - General Physician Gravity Manager 09/13/24 Mak Pham MD [address] [place] [phone] [email or web address] Insurance Assigned Provider 02/06/24 documented as of this encounter Additional Source Comments The information contained in this document represents components of the legal health record. It is not the complete legal health record.[facility]
--- OUTSIDE RECORDS SUMMARY | 2025-05-19 03:58 | XMS_ITS | Encounter Summary ---
Author Organization [facility] Address [address] [place] [address] Phone Care Team Providers Care Bleacher [employer] Name Role Phone Mak Pham MD Unavailable [phone] Bre Galicia Primary Care Provider [phone] Encounter Details Date Type Department Care Team (Late st Contact Info) Description 11/15/2024 Transcribe Orders Virtual Department [address] [place] [address] Bre Galicia PA [address] [place] [address] [phone] [email or web address] Social History Tobacco Use Types Packs/Day Years [...] high school, GED, job training, learning the [place] language, technical skills, or developing parenting skills)? [...] documented as of this encounter Care Teams Bleacher [employer] Relationship Specialty Start Date End Date Bre Galicia PA [address] [place] [address] [email or web address] PCP - General Physician Radial Drill Operator 2/11/25 Mak Pham MD [address] [place], [place] [id number] [email or web address] Insurance Assigned Provider 02/06/24 documented as of this encounter Additional Source Comments The information contained in this document represents components of the legal health record. It is not the complete legal health record.[facility]
[2025-05-19 04:58] LABS: Appearance Urine Clear; Glucose Urine UA Negative (Negative); PH 6.0 (5.0-9.0); Specific Gravity - Urine >= 1.030 (1.005-1.025)
[2025-05-19] MEDS: Lactated Ringers 1,000 ML 100 ML IVCONT ×3 (06:18→16:39)
--- NOTE | 2025-05-19 06:30 | PM.HPGS ---
History of Present Illness History of Present Illness Date of Service: 05/22/25 Chief complaint: partial small bowel obstruction Narrative: Maribel Underwood is a 64 year old female in the ER because of abdominal pain. She says that she had low intensity pain all day yesterday. This seemed to have increased in severity late last night after dinner. She also started to have vomiting and describes having about 6 episodes. Her last episode of vomiting was around 230 in the morning She says she had bowel movement yesterday. She does not recall when her last passage of flatus was but she says she may have had some flatus yesterday. She actually has a history of uneventful laparoscopic appendectomy last April,. She had been doing well since then. She also has a known history of breast cancer and had undergone treatment for this in the distant past. She currently says that her pain is still present although has subsided. She has had no vomiting since 230 in the morning. Review of Systems Constitutional: Constitutional: Denies chills and Denies fever(s) Cardiovascular: Cardiovascular: Denies chest pain, Denies dyspnea and Denies dyspnea on exertion Respiratory: Respiratory: Denies cough, Denies dyspnea and Denies dyspnea on exertion Gastrointestinal: Gastrointestinal: Denies hematochezia and Denies change in bowel habits Genitourinary: Genitourinary: Denies hematuria Musculoskeletal: Musculoskeletal: Denies back pain and Denies limited range of motion Neurologic: Denies focal weakness and Denies convulsions Psychiatric: Psychiatric: Denies depression and Denies mood swings PMFSH Past Medical History Medical History (Updated 05/19/25 @ 04:45 by Lloyd Costa PA-C) History of breast cancer Surgical History Surgical History (Updated 04/24/25 @ 08:53 by ALICIA Bello) History of laparoscopic appendectomy (04/04/25) Hx of bilateral breast implants History of lumpectomy of left breast H/O: hysterectomy Social History Social History Household Members: Spouse Housing: House Do you presently have visiting nurse or other home services: No Comment: counts correct Patient Tobacco Use Status: Never used Tobacco Second Hand Smoke Exposure: No service: No Meds Allergies Allergy/AdvReac Type Severity Reaction Status Date / Time oxycodone Allergy Unknown itching Verified 05/19/25 03:06 Active Medications: Current Medications Lactated Ringer's (Lr) 1,000 mls @ 100 mls/hr IVCONT .Q10H NICOLA Last Admin: 05/19/25 06:18 Dose: 100 mls/hr Home Medications ?Medication ?Instructions ?Recorded ?Confirmed ?Last Taken ?Type ibuprofen 200 mg tablet 200 mg PO DAILY PRN Pain 05/19/25 05/19/25 Unknown History losartan 25 mg tablet 25 mg PO DAILY 05/19/25 05/19/25 05/18/25 History Physical Exam Vital Signs: Vital Signs: Last Vital Signs Temp 98.1 F 05/19/25 05:55 Pulse 101 H 05/19/25 05:55 Resp 20 05/19/25 05:55 BP 156/79 H 05/19/25 05:55 Pulse Ox 95 05/19/25 05:55 O2 Del Method Room Air 05/19/25 05:55 BMI result Body Mass Index 26.2 Const: General: comfortable and no acute distress Orientation/consciousness: patient oriented x3 Neck: Neck: Yes no lymphadenopathy Resp: Auscultation: clear to auscultation bilaterally Cardio: Rhythm: regular rhythm GI: Inspection: No distended Palpation (GI): Soft to palpation, Tenderness to palpation present (GI) (Mild diffuse tenderness) and no guarding Neuro: General: patient oriented x3 Results Results Labs: Short CBC 05/19/25 Range/Units 03:24 WBC 12.9 H (4.8-10.8) X10*3/uL Hgb 14.2 (12.0-16.0) g/dl Hct 42.3 D (37.0-47.0) % Plt Count 284 D (160-400) X10*3/uL BMP 05/19/25 03:24 Sodium 141 Potassium 3.9 Chloride 106 Carbon Dioxide 24 BUN 22 H Creatinine 0.99 Calcium 10.6 H D Liver Function 05/19/25 Range/Units 03:24 Total Bilirubin 0.6 (0.0-1.0) mg/dL AST 30 (5-31) U/L ALT 17 (0-31) U/L Alkaline Phosphatase 86 (39-117) U/L Albumin 5.0 (3.5-5.0) g/dL Urine 05/19/25 Range/Units 04:51 Urine Color Yellow Urine Appearance Clear Urine pH 6.0 (5.0-9.0) Ur Specific [place] >= 1.030 H (1.005-1.025) Urine Protein Trace (Neg-Trace) mg/dL Urine Glucose (UA) Negative (Negative) mg/dL Abdomen CT scan report/results: report reviewed and image reviewed CT scan - pelvis: report reviewed and image reviewed Additional studies: CLINICAL HISTORY: Epigastric; RUQ and R Flank pain tenderness; N V CT abdomen and pelvis with contrast Comparison: 04/03/2025 Findings: No consolidation or effusion. There is a sliding-type hiatal hernia. There are circumscribed hepatic lesions, unchanged, possible incidental cysts. Unremarkable gallbladder and solid organs. No urolithiasis. There are distended loops of small bowel with transition point in the mid pelvis. No pneumoperitoneum or pneumatosis. Pelvic contents unremarkable. The bones are intact. IMPRESSION: Small-bowel obstruction. This document has been electronically signed by: Rudolph Nolasco MD on 05/19/2025 04:34:36 Assessment and Plan (1) Small bowel obstruction: Status: Acute 64 year old female who is here in the emergency room for abdominal pain. I have reviewed her CAT scan and this shows dilated small bowel loops in the pelvis with a likely transition point consistent with partial small-bowel obstruction. This is likely from her recent appendectomy. She does have air distally including amounts of air in the colon Her abdominal exam is benign. She minimal tenderness currently and subjectively feels some improvement since last night I will keep her NPO for now. We will she will be on IV fluids . She says that she is no longer nauseous and has had no vomiting for the past 4 hours so I will hold off on NG tube insertion for now. She does understand that this may be necessary if she has further vomiting I explained to her that there is always a small possibility that she may require laparotomy if she worsens clinically or has non improvement after a significant period of time. Her labs are unremarkable currently. She does not appear toxic and seems to be comfortable currently. Quality Stroke Does the patient have a stroke diagnosis?: No VTE Prior VTE?: No VTE Risk Level:: Medical - moderate - high VTE Device Contraindication: N/A - Device Ordered VTE Drug Contraindication: N/A - Med Ordered Procedures Date of Service Date of Service: 05/22/25
--- NOTE | 2025-05-19 09:37 | HO.NURTONUR ---
Pt is a 64yo F with recent hx of lap appy (apr 2025). Came to ED for nausea/vomiting and diffuse abd pain. Reports several episodes of vomiting last pm. CT abd shows partial bowel obstruction. Pt denies vomiting since 229. Pt will remain NPO, LR@100. HOlding off on NGT at this time. Will reassess if pt begins vomiting again. Pt is ambulatory. Uses bathroom independently. VSS. NAD.
--- NOTE | 2025-05-19 10:43 | PHA.MEDREC ---
Pharmacy Consult ? Medication Reconciliation Pharmacy has completed the medication reconciliation. Spoke to patient to confirm medication list.
--- NOTE | 2025-05-19 13:48 | MHC.CM.PN ---
Pt. lives with her , she does not use home health services or DME, PCP confirmed: Bre Mesa, pt. has HCP, her , copy requested. Pt. is able to arrange a ride home at [place], DCP: home, self care, CM to follow for DC needs.
--- NOTE | 2025-05-19 15:20 | PM.EVENT ---
Event Note Date of Service: 05/19/25 Event Note: seen on afternoon rounds passing flatus no pain abd soft, nontender she looks well no N/V ok to try clear liquids for dinner Time Spent With Patient Time: Total time managing care of this patient today ____ minutes.
[2025-05-20] MEDS: Lactated Ringers 1,000 ML 100 ML IVCONT (02:13)
[2025-05-20 03:31] VITALS: BP 170/73; PULSE 74; RESP 18; TEMP 36.2; O2SAT 95
[2025-05-20 06:17] LABS: Hematocrit 34.6 % (37.0-47.0); Hemoglobin 11.3 g/dl (12.0-16.0); Mean Corpuscular HGB Conc 32.7 g/dl (31.0-35.0); Mean Corpuscular Hemoglobin 28.7 pg (27.0-33.0); Mean Corpuscular Volume 87.8 fL (80.0-98.0); NRBC Abs Auto 0.000 X10*3/uL (0.0-0.012); NRBC Pct Auto 0.0 /100WBC (0.0-0.2); Platelet Count 208 X10*3/uL (160-400); Red Blood Count 3.94 X10*6/uL (4.20-5.50); White Blood Count 6.2 X10*3/uL (4.8-10.8)
--- NOTE | 2025-05-20 06:23 | PC.NURSE ---
Pt seen on bed alert and oriented, ambu ad bonita, still endorsing epig pain, prn Morphine given, slept comfortably after, vitals WNL.
[2025-05-20 06:34] LABS: Anion Gap 11 (12-20); Blood Urea Nitrogen 10 mg/dL (9-16); Calcium 9.7 mg/dL (8.4-10.2); Carbon Dioxide 26 mmol/L (22-29); Chloride 108 mmol/L (96-108); Creatinine Clr Calc Pharmacy 57.2; Estimated Glomerular Filt Rate > 60; Potassium 4.1 mmol/L (3.3-5.1); Sodium 141 mmol/L (135-145)
[2025-05-20 08:00] VITALS: BP 170/81; PULSE 84; RESP 16; TEMP 36.6; O2SAT 95
--- NOTE | 2025-05-20 09:00 | PC.NURSE ---
Patient refused sequentials ,risks explained,patient ambulating
--- NOTE | 2025-05-20 11:33 | P.PNGS_ITS ---
Subjective Subjective Date of Service: 05/20/25 Interval history: Patient feels much improved this morning. She tolerated a regular breakfast without nausea or vomiting. Physical Exam 2 Vital Signs: Vital Signs: Last Vital Signs Temp 97.9 F 05/20/25 08:00 Pulse 84 05/20/25 08:00 Resp 16 05/20/25 08:00 BP 170/81 H 05/20/25 08:00 Pulse Ox 95 05/20/25 08:00 O2 Del Method Room Air 05/20/25 08:00 BMI result Body Mass Index 23.2 Const: General: no acute distress Nutritional Appearance: well nourished Orientation/consciousness: patient oriented x3 Limitations: no limitations Resp: Effort & Inspection: normal respiratory effort GI: Inspection: Yes normal to inspection Palpation (GI): Soft to palpation, nontender, no guarding and not rigid Neuro: General: patient oriented x3 Extrem: General: Yes no pedal edema Objective Data Active Medications Acetaminophen (Acetaminophen 325 Mg Tablet) 650 mg PO Q6H PRN PRN Reason: Pain, Mild 1-3,fever,headache Last Admin: 05/19/25 17:18 Dose: 650 mg Documented By: ZEINA Heparin Sodium (Porcine) (Heparin Sodium,Porcine 5,000 Unit/Ml Vial) 5,000 unit SUBCUT Q8H [facility] Last Admin: 05/20/25 05:51 Dose: 5,000 unit Documented By: SALONI Lactated Ringer's (Lr) 1,000 mls @ 100 mls/hr IVCONT .Q10H [facility] Last Admin: 05/20/25 02:13 Dose: 100 mls/hr Documented By: SALONI Morphine Sulfate (Morphine Sulfate 4 Mg/Ml Cartridge) 3 mg IVPUSH Q4H PRN; Protocol PRN Reason: Pain, Severe (Pain Scale 7-10) Last Admin: 05/19/25 21:02 Dose: 3 mg Documented By: SALONI Ondansetron HCl (Ondansetron Hcl 4 Mg/2 Ml Vial) 4 mg IVPUSH Q6H PRN PRN Reason: nausea Sodium Chloride (0.9 % Sodium Chloride Flush 3 Ml Syringe) 3 ml IVFLUSH QSHIFT [facility] Last Admin: 05/20/25 07:43 Dose: Not Given Documented By: HO.[email or web address] Non-Admin Reason: IV Running Labs 05/20/25 05:56 05/20/25 05:50 Labs: Laboratory Results - last 24 hr 05/20/25 05/20/25 05:50 05:56 MCV 87.8 MCH 28.7 MCHC 32.7 RDW 13.0 Plt Count 208 D MPV 9.3 L Absolute Nucleated RBC 0.000 Nucleated RBC % (auto) 0.0 Anion Gap 11 L Estim Creat Clear Calc 57.2 Estimated GFR > 60 Random Glucose 91 Calcium 9.7 D Procedures Date of Service Date of Service: 05/20/25 Progress Note: A&P Assessment and plan (1) Small bowel obstruction: Status: Acute Plan 64-year-old female presenting with a partial small-bowel obstruction now resolved. She is tolerating regular diet without nausea, vomiting, or abdominal pain. Patient will be discharged to home with follow-up with Dr. Branham in 2 weeks. She should call sooner for return of the abdominal symptoms. Time Spent With Patient Time: Total time managing care of this patient today ____ minutes. Quality Stroke Does the patient have a stroke diagnosis?: No VTE Prior VTE?: No VTE Risk Level:: Medical - moderate - high VTE Device Contraindication: N/A - Device Ordered VTE Drug Contraindication: N/A - Med Ordered
--- NOTE | 2025-05-20 13:30 | MHC.CM.PN ---
pt dcd home self care
--- NOTE | 2025-05-20 14:41 | P.DS_ITS ---
DS: Providers Provider Date of Service: 05/20/25 Date of admission: 05/19/25 06:37 Date of discharge: 05/20/25 Primary care physician: Bre Mesa PA-C Attending physician on admission: Todd Branham Attending physician on discharge: Franki Hernandez DS: Diagnosis Discharge Diagnosis (1) Small bowel obstruction: Status: Acute DS: Summary Hospital Course Hospital Course: HPI AT ADMISSION: Maribel Underwood is a 64 year old female in the ER because of abdominal pain. She says that she had low intensity pain all day yesterday. This seemed to have increased in severity late last night after dinner. She also started to have vomiting and describes having about 6 episodes. Her last episode of vomiting was around 230 in the morning. She says she had bowel movement yesterday. She does not recall when her last passage of flatus was but she says she may have had some flatus yesterday. She actually has a history of uneventful laparoscopic appendectomy last April,. She had been doing well since then. She also has a known history of breast cancer and had undergone treatment for this in the distant past. She currently says that her pain is still present although has subsided. She has had no vomiting since 230 in the morning. CAT scan and this shows dilated small bowel loops in the pelvis with a likely transition point consistent with partial small-bowel obstruction. This is likely from her recent appendectomy. She does have air distally including amounts of air in the colon. HOSPITAL COURSE: She was admitted to the surgical service for further treatment of the PSBO. Supportive measures were employed. She was kept NPO on bowel rest with IVF. NGT was held as she felt improved without further vomiting. She was reassessed later in the day and felt improved and was started on clear liquids. This was then advanced to solids. On the day of discharge, she was tolerating a solid diet without any nausea, vomiting or abdominal pain. She was hemodynami nadine stable. her abdomen was benign. She was discharged to home on 05/20/25 in stable condition. She is to follow up in the office in 2 weeks. Status at Discharge Functional status at discharge: independent ambulation Overall status at discharge: patient is progressing back to baseline Time Attestation Discharge Coordination Time (in mins): 25 Quality: Safe Use of Opioids Does Pt have an Active Cancer Diagnosis on the Problem List?: No Quality: Stroke Does the patient have a stroke diagnosis?: No Physical Exam Vital Signs: Vital Signs: Last Vital Signs Temp 97.9 F 05/20/25 08:00 Pulse 84 05/20/25 08:00 Resp 16 05/20/25 08:00 BP 170/81 H 05/20/25 08:00 Pulse Ox 95 05/20/25 08:00 O2 Del Method Room Air 05/20/25 08:00 BMI result Body Mass Index 23.2 Const: General: comfortable, no acute distress and alert Orientation/consciousness: patient oriented x3 Resp: Effort & Inspection: normal respiratory effort GI: Inspection: No distended Palpation (GI): Soft to palpation and nontender Neuro: General: patient oriented x3 DS: Data Data Completed and Pending Completed studies during hospitalization [Text1]: Procedures Resection of Appendix, Percutaneous Endoscopic Approach (04/04/25) Discharge Plan Discharge Anticipated Discharge Date/Time: 05/20/25 07:54 Patient Disposition: Home, Self-Care Discharge Diagnosis: partial small bowel obstruction Referrals: Bre Galicia PA [Primary Care Provider, Family Practice] - 1 Week Todd Branham MD [Physician, General Surgery] - 2 Weeks Discharge Medications: Continued losartan 25 mg tablet 25 mg PO DAILY ibuprofen 200 mg Tablet 200 mg PO DAILY PRN (Reason: Pain) Discharge Orders: Discharge Order (Routine); Ordered 05/20/25 Ordered By: Franki Hernandez Diet: Advance to usual diet Activity on Discharge: As tolerated Stand Alone Forms: Patient Portal Discharge page Print Language: Turkish Care Plan Goals: return to baseline Health Concerns: may have recurrent obstruction Plan of Treatment: close monitoring Assessment: doing very well clinically Discharge Date/Time: 05/20/25 11:50
== END 2025-05-20 11:50 | disposition home or self-care (01) | DRG 390 ==
LOC: HO.ED 04:45 → HO.EDOVER 06:43 → HO.S3 09:10
PROVIDERS: Physician Assistant; Admitting Provider Surgery; Emergency Provider Emergency Medicine; PCP Physician Assistant; Visit Provider Surgery
DX: K56.600 Partial intestinal obstruction, unspecified as to cause (principal); Z90.49 Acquired absence of other specified parts of digestive tract; Z79.899 Other long term (current) drug therapy
CPT/HCPCS: 36415; 74177; 80048; 80053; 81003; 83690; 85025; 85027; 99285; J1644; J2270; J2405; J7120; Q9967

== ENCOUNTER → 2025-05-19 03:13 | Outpatient (BNV) | payer BC, SELFPAY | PROVIDERS: Emergency Provider Emergency Medicine; PCP Physician Assistant; Visit Provider Specialist | DX: K56.609 Unspecified intestinal obstruction, unspecified as to partial versus complete obstruction (principal) | CPT/HCPCS: 74177 ==

== ENCOUNTER → 2025-05-19 06:37 | Outpatient (BNV) | payer BC, SELFPAY | PROVIDERS: Admitting Provider Surgery; Emergency Provider Emergency Medicine; PCP Physician Assistant; Visit Provider Surgery | DX: K56.609 Unspecified intestinal obstruction, unspecified as to partial versus complete obstruction (principal) | CPT/HCPCS: 99232; 99499 ==